=== PATIENT | male | born 1930 | race Caucasian/White ===

== ENCOUNTER 2017-07-21 21:46 | Emergency (ER) | payer OTHER, MEDICARE, BC ==
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
[2017-07-21] MEDS ORDERED: Iopamidol 612 MG/ML 75 ML Bottle IVPUSH ONE (22:07)
[2017-07-21] MEDS ORDERED: Iopamidol 612 MG/ML 100 ML Bottle IVPUSH ONE (22:20)
[2017-07-21 22:27] LABS: CHLORIDE,CL 102 mmol/L (101-111); SODIUM,NA 142 mmol/L (135-145)
[2017-07-21] MEDS ORDERED: Ketorolac 30 MG/ML SDV IVPUSH ONE (23:34)
--- NOTE | 2017-08-06 11:32 | EKG ---
07/21/2017- JD ROBERTO - This is a standard 12-lead EKG showing sinus rhythm with a ventricular rate of 73 beats per minute. There are premature ventricular complexes. No significant ST-T changes. Normal MT interval and QRS duration. [facility] /[id number]
== END 2017-07-21 23:56 | disposition home or self-care (01) ==
LOC: DL.ED 21:46
DX: S20.212A Contusion of left front wall of thorax, initial encounter (principal); Z79.82 Long term (current) use of aspirin; Z79.899 Other long term (current) drug therapy; V49.9XXA Car occupant (driver) (passenger) injured in unspecified traffic accident, initial encounter
CPT/HCPCS: 36415; 71260; 74177; 80053; 83880; 84484; 85025; 85610; 96374; 99285; J1885; Q9967

== ENCOUNTER 2018-04-17 10:30 | Inpatient (IN) | payer MEDICARE, BC ==
--- NOTE | 2018-04-17 10:31 | EDM.PDOC ---
ED HPI GENERAL MEDICAL PROBLEM - General Chief Complaint: Back Pain or Injury Stated Complaint: IN BY AMBULANCE Time Seen by Provider: 04/17/18 10:22 Source of Information: Reports: Patient, EMS History Limitations: Reports: No Limitations - History of Present Illness INITIAL COMMENTS - FREE TEXT/NARRATIVE: This 87 yo male patient was brought to the ED from [facility] due to lower back pain. The patient reports that he fell on Saturday (04/15/18) while at home. The patient reports he has noticed increased pain since the fall. The patient reports his pain got so bad today, that he was unable to ambulate. The patient denies any loss of consciousness before, during or after the fall. The patient reports that on Saturday, he fell in his bathroom and may have hit his back on the sink. The patient has not taken anything for temporary symptom relief and has not been seen by his primary care facility. Onset Date: 04/15/18 Duration: Constant, Getting Worse Location: Reports: Back (lower back ) Quality: Reports: Ache, Sharp, Stabbing Severity: Severe (rates his pain at a 8/10) Improves with: Reports: Rest Worsens with: Reports: Movement Context: Reports: Other (ground level fall 2 days ago) Associated Symptoms: Reports: Other (unable to ambulate due to pain) Middle Back Pain Score (Numeric/FACES): 8 - Related Data Allergies Allergy/AdvReac Type Severity Reaction Status Date / Time No Known Allergies Allergy Verified 04/17/18 10:40 Home Meds: Home Meds Antiox#10/Om3/DHA/EPA/Lut/Zeax [I-Caps with Lutein-[place] 3 SFG] 1 cap PO DAILY 05/19/14 [History] Doxazosin Mesylate 4 mg PO DAILY 05/19/14 [History] Magnesium 250 mg PO .3TIMES A WEEK 05/19/14 [History] Metoprolol Succinate [Toprol XL 50mg] 50 mg PO DAILY 05/19/14 [History] Potassium 250 mg PO BID 05/19/14 [History] Acetaminophen 650 mg PO Q6H PRN 10/11/14 [History] Finasteride [Proscar] 5 mg PO DAILY 10/11/14 [History] Acetaminophen [Tylenol Extra Strength] 500 mg PO Q8H PRN #30 tab 11/08/14 [Rx] Apixaban [Eliquis] 5 mg PO BID 04/17/18 [History] Gabapentin [Neurontin] 300 mg PO DAILY 04/17/18 [History] Ibuprofen [Motrin] 600 mg PO Q8H PRN 04/17/18 [History] atorvaSTATin [Lipitor] 10 mg PO BEDTIME 04/17/18 [History] ED ROS GENERAL - Review of Systems Review Of Systems: ROS reveals no pertinent complaints other than HPI. ED EXAM,LOWER BACK PAIN/INJURY - Physical Exam Exam: See Below Exam Limited By: No Limitations General Appearance: Alert, WD/WN, Moderate Distress Eye Exam: Bilateral Eye: EOMI, Normal Inspection, PERRL Ears: Normal External Exam, Normal Canal, Hearing Grossly Normal, Normal TMs Nose: Normal Inspection, Normal Mucosa, No Blood Throat/Mouth: Normal Inspection, Normal Lips, Normal Teeth, Normal Gums, Normal Oropharynx, Normal Voice, No Airway Compromise Head: Atraumatic, Normocephalic Neck: Normal Inspection, Supple, Non-Tender, Full Range of Motion Respiratory/Chest: No Respiratory Distress, Lungs Clear, Normal Breath Sounds, No Accessory Muscle Use, Chest Non-Tender Cardiovascular: Normal Peripheral Pulses, Regular Rate, Rhythm, No Edema, No Gallop, No JVD, No Murmur, No Rub GI/Abdominal: Normal Bowel Sounds, Soft, Non-Tender, No Organomegaly, No Distention, No Abnormal Bruit, No Mass (Male) Exam: Deferred Rectal (Males) Exam: Deferred Back Exam: Muscle Spasm, Paraspinal Tenderness, Vertebral Tenderness Extremities: Normal Inspection, Non-Tender, No Pedal Edema, Normal Capillary Refill Neurological: Alert, Normal Mood/Affect, CN II-XII Intact, Straight Leg Raise (L ), Straight Leg Raise (R), Difficulty Walking (due to pain). No: Saddle Anesthesia Psychiatric: Normal Affect, Normal Mood Skin Exam: Warm, Dry, Intact, Normal Color, No Rash Lymphatic: No Adenopathy Course - Vital Signs Last Recorded V/S: Last Vital Signs Temp 36.6 C 04/17/18 10:25 Pulse 64 04/17/18 10:25 Resp 16 04/17/18 10:25 BP 145/91 H 04/17/18 10:25 Pulse Ox 91 L 04/17/18 10:25 - Orders/Labs/Meds Orders: Active Orders 24 hr Category Date Time Status Lumbar Spine wo Cont [CT] Urgent Exams 04/17/18 10:25 Taken CULTURE URINE [RM] Stat Lab 04/17/18 11:17 Ordered UA W/MICROSCOPIC [URIN] Stat Lab 04/17/18 10:42 Ordered Labs: Laboratory Tests 04/17/18 04/17/18 04/17/18 Range/Units 10:32 10:32 10:42 WBC 11.6 H (5.0-10.0) 10^3/uL RBC 4.99 (4.6-6.2) 10^6/uL Hgb 15.2 (14.0-18.0) g/dL Hct 44.4 (40.0-54.0) % MCV 89.0 D (80-100) fL MCH 30.5 (27.0-34.0) pg MCHC 34.2 (33.0-35.0) g/dL Plt Count 149 L (150-450) 10^3/uL Neut % (Auto) 80.1 H (42.2-75.2) % Lymph % (Auto) 10.5 L (20.5-50.1) % [place] % (Auto) 8.4 H (2-8) % Eos % (Auto) 0.7 L (1.0-3.0) % Baso % (Auto) 0.3 (0.0-1.0) % Sodium 139 (135-145) mmol/L Potassium 4.2 (3.6-5.0) mmol/L Chloride 105 (101-111) mmol/L Carbon Dioxide 25.0 (21.0-31.0) mmol/L Anion Gap 13.2 BUN 18 (7-18) mg/dL Creatinine 0.9 (0.6-1.3) mg/dL Est Cr Clr Drug Dosing 54.60 mL/min Estimated GFR (MDRD) > 60 BUN/Creatinine Ratio 20.00 Glucose 121 H (74-105) mg/dL Calcium 8.9 (8.4-10.2) mg/dl Total Bilirubin 1.4 H (0.2-1.0) mg/dL AST 25 (10-42) IU/L ALT 21 (10-60) IU/L Alkaline Phosphatase 65 (42-121) IU/L Total Protein 7.0 (6.7-8.2) g/dl Albumin 3.9 (3.2-5.5) g/dl Globulin 3.1 Albumin/Globulin Ratio 1.26 Urine Color Yellow (YELLOW) Urine Appearance Slightly cloudy (CLEAR) Urine pH 6.0 (5.0-9.0) Ur Specific [place] 1.020 (1.005-1.030) Urine Protein Negative (NEGATIVE) Urine Glucose (UA) Negative (NEGATIVE) Urine Ketones 15 H (NEGATIVE) Urine Occult Blood Trace-intact H (NEGATIVE) Urine Nitrite Positive H (NEGATIVE) Urine Bilirubin Negative (NEGATIVE) Urine Urobilinogen 0.2 (0.2-1.0) mg/dL Ur Leukocyte Esterase Trace H (NEGATIVE) Urine RBC 5-10 H /HPF Urine WBC 5-10 H (0-5/HPF) /HPF Ur Epithelial Cells Few /HPF Urine Bacteria Many H (0-FEW/HPF) /HPF Meds: Medications Discontinued Medications Generic Name Dose Route Start Last Admin Trade Name Freq PRN Reason Stop Dose Admin Ceftriaxone Sodium 1 gm 04/17/18 12:22 Rocephin IVPUSH 04/17/18 12:23 ONETIME ONE Departure - Departure Time of Disposition: 12:24 Disposition: Admitted As Inpatient 65 Condition: Fair Clinical Impression: UTI (urinary tract infection) Qualifiers: Urinary tract infection type: site unspecified Hematuria presence: without hematuria Qualified Code(s): N39.0 - Urinary tract infection, site not specified Low back pain Qualifiers: Chronicity: acute Back pain laterality: bilateral Sciatica presence: without sciatica Qualified Code(s): M54.5 - Low back pain - Discharge Information Care Plan Goals: Discussed the patient's history, lab and CT results with Dr. Taylor. Dr. Taylor accepted the patient for continued evaluation and further treatment at [facility] in [place]. - My Orders Last 24 Hours: My Active Orders 04/17/18 10:25 Lumbar Spine wo Cont [CT] Urgent 04/17/18 10:42 UA W/MICROSCOPIC [URIN] Stat 04/17/18 11:17 CULTURE URINE [RM] Stat - Assessment/Plan Last 24 Hours: My Active Orders 04/17/18 10:25 Lumbar Spine wo Cont [CT] Urgent 04/17/18 10:42 UA W/MICROSCOPIC [URIN] Stat 04/17/18 11:17 CULTURE URINE [RM] Stat
[2018-04-17 11:11] LABS: CHLORIDE,CL 105 mmol/L (101-111); SODIUM,NA 139 mmol/L (135-145)
[2018-04-17] MEDS ORDERED: cefTRIAXone 1 GM Vial IVPUSH ONE (12:22)
[2018-04-17] MEDS ORDERED: Ibuprofen 600 MG Tab PO PRN (14:17)
[2018-04-17] MEDS ORDERED: Ibuprofen 400 MG Tab PO PRN (14:19)
[2018-04-17] MEDS ORDERED: Ondansetron 4 MG Tab.DIS PO PRN (14:32)
[2018-04-17] MEDS ORDERED: Zolpidem 5 MG Tab PO PRN (14:32)
--- NOTE | 2018-04-17 14:40 | PCM.HP ---
H&P History of Present Illness - General Date of Service: 04/17/18 Admit Problem/Dx: Admission Diagnosis/Problem Admission Diagnosis/Problem Back pain Source of Information: Patient - History of Present Illness Initial Comments - Free Text/Narative: The patient is an 87-year-old gentleman who lives in an assisted living facility. The patient fell and hit his back about to 3 days prior to this admission. He has been experiencing moderate to severe pain since. This is preventing him from being able to get up and ambulate. In his low back, nonradiating, sharp, severe pain. He practically has no pain when resting but severe when he is moving his lower extremities and trying to get up from bed or chair. No associated lower extremity sensory or motor changes. Can move both legs well but the very painful in the low back. The pain is nonradiating. Middle Back Pain Score (Numeric/FACES): 8 - Related Data Allergies/Adverse Reactions: Allergies Allergy/AdvReac Type Severity Reaction Status Date / Time No Known Allergies Allergy Verified 04/17/18 14:12 Home Medications: Home Meds Antiox#10/Om3/DHA/EPA/Lut/Zeax [I-Caps with Lutein-[place] 3 SFG] 1 cap PO DAILY 05/19/14 [History] Doxazosin Mesylate 4 mg PO DAILY 05/19/14 [History] Magnesium 250 mg PO DAILY 05/19/14 [History] Metoprolol Succinate [Toprol XL 50mg] 100 mg PO DAILY 05/19/14 [History] Potassium 250 mg PO BID 05/19/14 [History] Acetaminophen 650 mg PO Q6H PRN 10/11/14 [History] Finasteride [Proscar] 5 mg PO DAILY 10/11/14 [History] Apixaban [Eliquis] 5 mg PO BID 04/17/18 [History] Gabapentin [Neurontin] 300 mg PO DAILY 04/17/18 [History] Ibuprofen [Motrin] 600 mg PO Q8H PRN 04/17/18 [History] atorvaSTATin [Lipitor] 10 mg PO BEDTIME 04/17/18 [History] Past Medical History HEENT History: Reports: Hard of Hearing Cardiovascular History: Reports: Afib, High Cholesterol, Pacemaker Respiratory History: Reports: None Gastrointestinal History: Reports: Other (See Below) Other Gastrointestinal History: inguinal hernia Genitourinary History: Reports: BPH Musculoskeletal History: Reports: None 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, Peripheral Psychiatric History: Reports: None Endocrine/Metabolic History: Reports: None Hematologic History: Reports: None Immunologic History: Reports: None Oncologic (Cancer) History: Reports: None Dermatologic History: Reports: None - Infectious Disease History Infectious Disease History: Reports: None - Past Surgical History HEENT Surgical History: Reports: Cataract Surgery Cardiovascular Surgical History: Reports: Other (See Below) Other Cardiovascular Surgeries/Procedures: pacemaker Respiratory Surgical History: Reports: None GI Surgical History: Reports: None Male Surgical History: Reports: None Neurological Surgical History: Reports: None Musculoskeletal Surgical History: Reports: Hip Replacement Other Musculoskeletal Surgeries/Procedures:: right hip partial, 1989 Social & Family History - Family History Family Medical History: Noncontributory - Tobacco Use Smoking Status *Q: Never Smoker Second Hand Smoke Exposure: No - Caffeine Use Caffeine Use: Reports: Soda - Recreational Drug Use Recreational Drug Use: No H&P Review of Systems - Review of Systems: Review Of Systems: See Below General: Denies: Fever Pulmonary: Denies: Shortness of Breath Cardiovascular: Denies: Chest Pain Gastrointestinal: Denies: Abdominal Pain Genitourinary: Denies: Dysuria Musculoskeletal: Reports: Back Pain Skin: Denies: Rash Psychiatric: Reports: Confusion Exam - Exam Exam: See Below - Vital Signs Vital Signs: Last Vital Signs Temp 36.6 C 04/17/18 13:19 Pulse 67 04/17/18 13:19 Resp 20 04/17/18 13:19 BP 154/73 H 04/17/18 13:19 Pulse Ox 92 L 04/17/18 13:19 Weight: 74.888 kg - Exam Quality Assessment: Supplemental Oxygen General: Alert, Oriented Neck: Supple Lungs: Clear to Auscultation, Normal Respiratory Effort Cardiovascular: Regular Rate, Regular Rhythm GI/Abdominal Exam: Normal Bowel Sounds, Soft, Non-Tender Back Exam: Normal Inspection, Paraspinal Tenderness (Lumbar lower spine) Extremities: No Pedal Edema Neurological: Sensation Intact. No: Focal Deficit Neuro Extensive - Mental Status: Alert. 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), Memory Intact - Patient Data Lab Results Last 24 hrs: Laboratory Results - last 24 hr 04/17/18 04/17/18 04/17/18 Range/Units 10:32 10:32 10:42 WBC 11.6 H (5.0-10.0) 10^3/uL RBC 4.99 (4.6-6.2) 10^6/uL Hgb 15.2 (14.0-18.0) g/dL Hct 44.4 (40.0-54.0) % MCV 89.0 D (80-100) fL MCH 30.5 (27.0-34.0) pg MCHC 34.2 (33.0-35.0) g/dL Plt Count 149 L (150-450) 10^3/uL Neut % (Auto) 80.1 H (42.2-75.2) % Lymph % (Auto) 10.5 L (20.5-50.1) % [place] % (Auto) 8.4 H (2-8) % Eos % (Auto) 0.7 L (1.0-3.0) % Baso % (Auto) 0.3 (0.0-1.0) % Sodium 139 (135-145) mmol/L Potassium 4.2 (3.6-5.0) mmol/L Chloride 105 (101-111) mmol/L Carbon Dioxide 25.0 (21.0-31.0) mmol/L Anion Gap 13.2 BUN 18 (7-18) mg/dL Creatinine 0.9 (0.6-1.3) mg/dL Est Cr Clr Drug Dosing 54.60 mL/min Estimated GFR (MDRD) > 60 BUN/Creatinine Ratio 20.00 Glucose 121 H (74-105) mg/dL Calcium 8.9 (8.4-10.2) mg/dl Total Bilirubin 1.4 H (0.2-1.0) mg/dL AST 25 (10-42) IU/L ALT 21 (10-60) IU/L Alkaline Phosphatase 65 (42-121) IU/L Total Protein 7.0 (6.7-8.2) g/dl Albumin 3.9 (3.2-5.5) g/dl Globulin 3.1 Albumin/Globulin Ratio 1.26 Urine Color Yellow (YELLOW) Urine Appearance Slightly cloudy (CLEAR) Urine pH 6.0 (5.0-9.0) Ur Specific [place] 1.020 (1.005-1.030) Urine Protein Negative (NEGATIVE) Urine Glucose (UA) Negative (NEGATIVE) Urine Ketones 15 H (NEGATIVE) Urine Occult Blood Trace-intact H (NEGATIVE) Urine Nitrite Positive H (NEGATIVE) Urine Bilirubin Negative (NEGATIVE) Urine Urobilinogen 0.2 (0.2-1.0) mg/dL Ur Leukocyte Esterase Trace H (NEGATIVE) Urine RBC 5-10 H /HPF Urine WBC 5-10 H (0-5/HPF) /HPF Ur Epithelial Cells Few /HPF Urine Bacteria Many H (0-FEW/HPF) /HPF Result Diagrams: 04/17/18 10:32 04/17/18 10:32 Problem List Initiated/Reviewed/Updated: Yes Orders Last 24hrs: Active Orders 24 hr Category Date Time Status Patient Status [ADT] Routine ADT 04/17/18 14:32 Ordered Oxygen Therapy [RC] PRN Care 04/17/18 14:32 Ordered Peripheral IV Care [RC] . DIRECTED Care 04/17/18 14:33 Ordered Up With Assistance [RC] ASDIRECTED Care 04/17/18 14:32 Ordered VTE/DVT Education [RC] PER UNIT ROUTINE Care 04/17/18 14:32 Ordered Vital Signs [RC] Q4H Care 04/17/18 14:32 Ordered OT Evaluation and Treatment [CONS] Routine Cons 04/17/18 14:28 Active PT Evaluation and Treatment [CONS] Routine Cons 04/17/18 14:28 Active Regular Diet [DIET] Diet 04/17/18 Dinner Ordered Lumbar Spine wo Cont [CT] Urgent Exams 04/17/18 10:25 Taken BASIC METABOLIC PANEL,BMP [CHEM] AM Lab 04/18/18 05:15 Ordered CBC WITH AUTO DIFF [HEME] AM Lab 04/18/18 05:15 Ordered CULTURE URINE [RM] Stat Lab 04/17/18 10:25 Received UA W/MICROSCOPIC [URIN] Stat Lab 04/17/18 10:42 Ordered Acetaminophen [Tylenol] Med 04/17/18 21:00 Ordered 650 mg PO BID Acetaminophen [Tylenol] Med 04/17/18 14:17 Active 650 mg PO Q6H PRN Apixaban [Eliquis] Med 04/17/18 21:00 Ordered 5 mg PO BID Docusate Sodium [Colace] Med 04/17/18 14:32 Ordered 100 mg PO BID PRN Doxazosin [Cardura] Med 04/18/18 09:00 Active 4 mg PO DAILY Finasteride [Proscar] Med 04/18/18 09:00 Active 5 mg PO DAILY Gabapentin [Neurontin] Med 04/17/18 21:00 Active 200 mg PO BID Ibuprofen [Motrin] Med 04/17/18 21:00 Active 400 mg PO BID Ibuprofen [Motrin] Med 04/17/18 14:19 Active 400 mg PO Q8H PRN Lidocaine 5% [Lidoderm 5%] Med 04/17/18 14:30 Ordered 700 mg TOP DAILY Magnesium Oxide Med 04/18/18 09:00 Active 250 mg PO DAILY Metoprolol Succinate [Toprol XL] Med 04/18/18 09:00 Active 100 mg PO DAILY Morphine Med 04/17/18 14:32 Ordered 1 mg IVPUSH Q2H PRN Ondansetron [Zofran ODT] Med 04/17/18 14:32 Ordered 4 mg PO Q6H PRN Potassium [Potassium] Med 04/17/18 21:00 Ordered 250 mg PO BID Sodium Chloride 0.9% [Saline Flush] Med 04/17/18 14:32 Ordered 10 ml FLUSH ASDIRECTED PRN Zolpidem [Ambien] Med 04/17/18 14:32 Ordered 5 mg PO BEDTIME PRN atorvaSTATin [Lipitor] Med 04/17/18 21:00 Active 10 mg PO BEDTIME cefTRIAXone [Rocephin] Med 04/18/18 13:00 Ordered 1 gm IVPUSH Q24H oxyCODONE Med 04/17/18 14:32 Ordered 5 mg PO Q4H PRN Antiembolic Hose [OM.PC] Per Unit Routine Oth 04/17/18 14:33 Ordered Peripheral IV Insertion Adult [OM.PC] Routine Oth 04/17/18 14:32 Ordered Saline Lock Insert [OM.PC] Routine Oth 04/17/18 14:32 Ordered Resuscitation Status Routine Resus Stat 04/17/18 14:32 Ordered Medication Orders Acetaminophen (Tylenol) 650 mg PO Q6H PRN PRN Reason: Pain/Fever Acetaminophen (Tylenol) 650 mg PO BID [facility] Atorvastatin Calcium (Lipitor) 10 mg PO BEDTIME [facility] Ceftriaxone Sodium (Rocephin) 1 gm IVPUSH Q24H [facility] Doxazosin Mesylate (Cardura) 4 mg PO DAILY [facility] Finasteride (Proscar) 5 mg PO DAILY [facility] Gabapentin (Neurontin) 200 mg PO BID [facility] Ibuprofen (Motrin) 400 mg PO Q8H PRN PRN Reason: pain moderate Ibuprofen (Motrin) 400 mg PO BID [facility] Lidocaine (Lidoderm 5%) 700 mg TOP DAILY [facility] Magnesium Oxide (Magnesium Oxide) 250 mg PO DAILY [facility] Metoprolol Succinate (Toprol Xl) 100 mg PO DAILY [facility] Non-Formulary Medication (Apixaban [Eliquis]) 5 mg PO BID [facility] Non-Formulary Medication (Potassium [Potassium]) 250 mg PO BID [facility] Assessment/Plan Comment:: acute on chronic back pain Has a history of chronic T12 compression fracture, spinal stenosis Has been on Neurontin in the past CT of the lumbar spine showed chronic and degenerative changes For pain control I will increase the Neurontin, add Lidoderm patch, will use scheduled ibuprofen and Tylenol along with as needed Tylenol, ibuprofen, oxycodone We will consult physical and occupational therapy Urinary tract infection Obtain urine culture Treat with ceftriaxone Atrial fibrillation Continue metoprolol for rate control Continue apixaban for anticoagulation Hypertension Will treat with lisinopril History of atrial fibrillation Rate control with metoprolol Anticoagulation with apixaban DVT prophylaxis with full dose anticoagulation with apixaban
[2018-04-17] MEDS: Lidocaine 5% 700 MG Patch TOP SCH (15:51)
[2018-04-17] MEDS ORDERED: Non-Formulary Medication 1 Each (Apixaban [Eliquis] 5 MG) PO SCH (21:00)
[2018-04-17] MEDS ORDERED: POTASSIUM PO SCH (21:00)
[2018-04-17] MEDS: Gabapentin 100 MG Cap PO SCH (22:33)
[2018-04-17] MEDS: Ibuprofen 400 MG Tab PO SCH (22:33)
[2018-04-17] MEDS: atorvaSTATin 10 MG Tab PO SCH (22:33)
[2018-04-17] MEDS: Acetaminophen 325 MG Tab PO SCH (22:35)
[2018-04-17] MEDS: ELIQUIS 5 MG PO SCH (22:36)
[2018-04-17] MEDS: K PHOS 500 MG PO SCH (22:37)
[2018-04-17] MEDS: Sodium Chloride 0.9% 10 ML Syringe FLUSH PRN (22:42)
[2018-04-18 06:57] LABS: CHLORIDE,CL 106 mmol/L (101-111); SODIUM,NA 139 mmol/L (135-145)
[2018-04-18] MEDS: Doxazosin 2 MG Tab PO SCH (08:35)
[2018-04-18] MEDS: Gabapentin 100 MG Cap PO SCH ×2 (08:36→20:55)
[2018-04-18] MEDS: Ibuprofen 400 MG Tab PO SCH ×2 (08:37→18:20)
[2018-04-18] MEDS: Metoprolol Succinate 50 MG Tab.ER PO SCH (08:38)
[2018-04-18] MEDS: Finasteride 5 MG Tab PO SCH (08:39)
[2018-04-18] MEDS: Acetaminophen 325 MG Tab PO SCH ×2 (08:40→20:59)
[2018-04-18] MEDS: Lidocaine 5% 700 MG Patch TOP SCH (08:42)
[2018-04-18] MEDS: ELIQUIS 5 MG PO SCH ×2 (09:30→20:52)
[2018-04-18] MEDS: K PHOS 500 MG PO SCH ×2 (09:30→20:53)
--- NOTE | 2018-04-18 10:43 | PCM.PN ---
- General Info Date of Service: 04/18/18 Subjective Update: The patient is an 87-year-old gentleman who has been living in an assisted living facility. The patient fell and hit the lower back. He has not been able to ambulate well since. Since admission the lower back pain continues. It is episodically moderate to severe. Worse with moving, better with rest. Started 2 days prior to admission after a fall. No associated syncopal. No urinary burning. he had Low-grade temperature overnight. - Review of Systems General: Reports: Fever, Weakness Pulmonary: Denies: Shortness of Breath Cardiovascular: Denies: Chest Pain Gastrointestinal: Denies: Abdominal Pain Genitourinary: Denies: Dysuria Neurological: Reports: Confusion - Patient Data Vitals - Most Recent: Last Vital Signs Temp 37.2 C 04/18/18 07:00 Pulse 74 04/18/18 08:38 Resp 20 04/18/18 07:00 BP 146/84 H 04/18/18 08:38 Pulse Ox 95 04/18/18 07:00 Weight - Most Recent: 74.888 kg I&O - Last 24 Hours: Intake & Output 04/17/18 04/18/18 04/18/18 22:59 06:59 14:59 Intake Total 500 Output Total 375 200 Balance 125 -200 Lab Results Last 24 Hours: Laboratory Results - last 24 hr 04/17/18 04/17/18 04/17/18 Range/Units 10:32 10:32 10:42 WBC 11.6 H (5.0-10.0) 10^3/uL RBC 4.99 (4.6-6.2) 10^6/uL Hgb 15.2 (14.0-18.0) g/dL Hct 44.4 (40.0-54.0) % MCV 89.0 D (80-100) fL MCH 30.5 (27.0-34.0) pg MCHC 34.2 (33.0-35.0) g/dL Plt Count 149 L (150-450) 10^3/uL Neut % (Auto) 80.1 H (42.2-75.2) % Lymph % (Auto) 10.5 L (20.5-50.1) % [place] % (Auto) 8.4 H (2-8) % Eos % (Auto) 0.7 L (1.0-3.0) % Baso % (Auto) 0.3 (0.0-1.0) % Sodium 139 (135-145) mmol/L Potassium 4.2 (3.6-5.0) mmol/L Chloride 105 (101-111) mmol/L Carbon Dioxide 25.0 (21.0-31.0) mmol/L Anion Gap 13.2 BUN 18 (7-18) mg/dL Creatinine 0.9 (0.6-1.3) mg/dL Est Cr Clr Drug Dosing 54.60 mL/min Estimated GFR (MDRD) > 60 BUN/Creatinine Ratio 20.00 Glucose 121 H (74-105) mg/dL Calcium 8.9 (8.4-10.2) mg/dl Total Bilirubin 1.4 H (0.2-1.0) mg/dL AST 25 (10-42) IU/L ALT 21 (10-60) IU/L Alkaline Phosphatase 65 (42-121) IU/L Total Protein 7.0 (6.7-8.2) g/dl Albumin 3.9 (3.2-5.5) g/dl Globulin 3.1 Albumin/Globulin Ratio 1.26 Urine Color Yellow (YELLOW) Urine Appearance Slightly cloudy (CLEAR) Urine pH 6.0 (5.0-9.0) Ur Specific [place] 1.020 (1.005-1.030) Urine Protein Negative (NEGATIVE) Urine Glucose (UA) Negative (NEGATIVE) Urine Ketones 15 H (NEGATIVE) Urine Occult Blood Trace-intact H (NEGATIVE) Urine Nitrite Positive H (NEGATIVE) Urine Bilirubin Negative (NEGATIVE) Urine Urobilinogen 0.2 (0.2-1.0) mg/dL Ur Leukocyte Esterase Trace H (NEGATIVE) Urine RBC 5-10 H /HPF Urine WBC 5-10 H (0-5/HPF) /HPF Ur Epithelial Cells Few /HPF Urine Bacteria Many H (0-FEW/HPF) /HPF 04/18/18 04/18/18 Range/Units 06:00 06:00 WBC 9.7 (5.0-10.0) 10^3/uL RBC 4.50 L (4.6-6.2) 10^6/uL Hgb 13.6 L D (14.0-18.0) g/dL Hct 40.5 (40.0-54.0) % MCV 90.0 (80-100) fL MCH 30.2 (27.0-34.0) pg MCHC 33.6 (33.0-35.0) g/dL Plt Count 131 L (150-450) 10^3/uL Neut % (Auto) 72.3 (42.2-75.2) % Lymph % (Auto) 14.8 L (20.5-50.1) % [place] % (Auto) 9.1 H (2-8) % Eos % (Auto) 3.4 H (1.0-3.0) % Baso % (Auto) 0.4 (0.0-1.0) % Sodium 139 (135-145) mmol/L Potassium 3.8 (3.6-5.0) mmol/L Chloride 106 (101-111) mmol/L Carbon Dioxide 25.0 (21.0-31.0) mmol/L Anion Gap 11.8 BUN 23 H (7-18) mg/dL Creatinine 1.0 (0.6-1.3) mg/dL Est Cr Clr Drug Dosing 54.09 mL/min Estimated GFR (MDRD) > 60 BUN/Creatinine Ratio Glucose 110 H (74-105) mg/dL Calcium 8.4 (8.4-10.2) mg/dl Total Bilirubin (0.2-1.0) mg/dL AST (10-42) IU/L ALT (10-60) IU/L Alkaline Phosphatase (42-121) IU/L Total Protein (6.7-8.2) g/dl Albumin (3.2-5.5) g/dl Globulin Albumin/Globulin Ratio Urine Color (YELLOW) Urine Appearance (CLEAR) Urine pH (5.0-9.0) Ur Specific [place] (1.005-1.030) Urine Protein (NEGATIVE) Urine Glucose (UA) (NEGATIVE) Urine Ketones (NEGATIVE) Urine Occult Blood (NEGATIVE) Urine Nitrite (NEGATIVE) Urine Bilirubin (NEGATIVE) Urine Urobilinogen (0.2-1.0) mg/dL Ur Leukocyte Esterase (NEGATIVE) Urine RBC /HPF Urine WBC (0-5/HPF) /HPF Ur Epithelial Cells /HPF Urine Bacteria (0-FEW/HPF) /HPF Mart Results Last 24 Hours: Microbiology 04/17/18 10:25 Urine Culture - Preliminary Urine, Voided Med Orders - Current: Current Medications Acetaminophen (Tylenol) 650 mg PO Q6H PRN PRN Reason: Pain/Fever Acetaminophen (Tylenol) 650 mg PO BID [facility] Last Admin: 04/18/18 08:40 Dose: 650 mg Atorvastatin Calcium (Lipitor) 10 mg PO BEDTIME [facility] Last Admin: 04/17/18 22:33 Dose: 10 mg Ceftriaxone Sodium (Rocephin) 1 gm IVPUSH Q24H [facility] Docusate Sodium (Colace) 100 mg PO BID PRN PRN Reason: Constipation Doxazosin Mesylate (Cardura) 4 mg PO DAILY [facility] Last Admin: 04/18/18 08:35 Dose: 4 mg Finasteride (Proscar) 5 mg PO DAILY [facility] Last Admin: 04/18/18 08:39 Dose: 5 mg Gabapentin (Neurontin) 200 mg PO BID [facility] Last Admin: 04/18/18 08:36 Dose: 200 mg Ibuprofen (Motrin) 400 mg PO Q8H PRN PRN Reason: pain moderate Ibuprofen (Motrin) 400 mg PO BID [facility] Last Admin: 04/18/18 08:37 Dose: 400 mg Lidocaine (Lidoderm 5%) 700 mg TOP DAILY [facility] Last Admin: 04/18/18 08:42 Dose: 700 mg Magnesium Oxide (Magnesium Oxide) 250 mg PO DAILY [facility] Last Admin: 04/18/18 08:36 Dose: 250 mg Metoprolol Succinate (Toprol Xl) 100 mg PO DAILY [facility] Last Admin: 04/18/18 08:38 Dose: 100 mg Miscellaneous Information (Remove Patch) 1 ea TRDERM BEDTIME [facility] Morphine Sulfate (Morphine) 1 mg IVPUSH Q2H PRN PRN Reason: Pain (severe 7-10) Ondansetron HCl (Zofran Odt) 4 mg PO Q6H PRN PRN Reason: nausea, able to take PO Oxycodone HCl (Oxycodone) 5 mg PO Q4H PRN PRN Reason: Pain (moderate 4-6) PtomEliquis 5 Mg (Tab) 0 each PO BID [facility] Last Admin: 04/17/18 22:36 Dose: 1 each PtomK-Phos 500 (Mg Tablet) 0 each PO BID [facility] Last Admin: 04/17/18 22:37 Dose: 1 each Sodium Chloride (Saline Flush) 10 ml FLUSH ASDIRECTED PRN PRN Reason: Keep Vein Open Last Admin: 04/17/18 22:42 Dose: 10 ml Zolpidem Tartrate (Ambien) 5 mg PO BEDTIME PRN PRN Reason: Sleep Discontinued Medications Ceftriaxone Sodium (Rocephin) 1 gm IVPUSH ONETIME ONE Stop: 04/17/18 12:23 Last Admin: 04/17/18 13:19 Dose: 1 gm Ibuprofen (Motrin) 600 mg PO Q8H PRN PRN Reason: Pain Non-Formulary Medication (Apixaban [Eliquis]) 5 mg PO BID [facility] Non-Formulary Medication (Potassium [Potassium]) 250 mg PO BID [facility] - Exam General: Alert, Oriented Neck: Supple Lungs: Clear to Auscultation, Normal Respiratory Effort Cardiovascular: Regular Rate, Regular Rhythm GI/Abdominal Exam: Normal Bowel Sounds, Soft, Non-Tender Back Exam: Vertebral Tenderness (Lower lumbar) Extremities: No Pedal Edema Skin: Warm, Dry Neurological: No New Focal Deficit, Strength Equal Bilateral (In the lower extremities), Sensation Intact (In lower extremities) Psy/Mental Status: Alert, Normal Affect, Normal Mood - Problem List Review Problem List Initiated/Reviewed/Updated: Yes - My Orders Last 24 Hours: My Active Orders 04/17/18 14:17 Acetaminophen [Tylenol] 650 mg PO Q6H PRN 04/17/18 14:19 Ibuprofen [Motrin] 400 mg PO Q8H PRN 04/17/18 14:28 OT Evaluation and Treatment [CONS] Routine PT Evaluation and Treatment [CONS] Routine 04/17/18 14:30 Lidocaine 5% [Lidoderm 5%] 700 mg TOP DAILY 04/17/18 14:32 Patient Status [ADT] Routine Oxygen Therapy [RC] PRN Up With Assistance [RC] ASDIRECTED VTE/DVT Education [RC] PER UNIT ROUTINE Vital Signs [RC] 07,11,15,19,23,03 Docusate Sodium [Colace] 100 mg PO BID PRN Morphine 1 mg IVPUSH Q2H PRN Ondansetron [Zofran ODT] 4 mg PO Q6H PRN Sodium Chloride 0.9% [Saline Flush] 10 ml FLUSH ASDIRECTED PRN Zolpidem [Ambien] 5 mg PO BEDTIME PRN oxyCODONE 5 mg PO Q4H PRN Peripheral IV Insertion Adult [OM.PC] Routine Saline Lock Insert [OM.PC] Routine Resuscitation Status Routine 04/17/18 14:33 Peripheral IV Care [RC] Antiembolic Hose [OM.PC] Per Unit Routine 04/17/18 21:00 Acetaminophen [Tylenol] 650 mg PO BID Gabapentin [Neurontin] 200 mg PO BID Ibuprofen [Motrin] 400 mg PO BID Patient's Own Medication [Ptom] See Dose Instructions PO BID Patient's Own Medication [Ptom] See Dose Instructions PO BID atorvaSTATin [Lipitor] 10 mg PO BEDTIME 04/17/18 Dinner Regular Diet [DIET] 04/18/18 09:00 Doxazosin [Cardura] 4 mg PO DAILY Finasteride [Proscar] 5 mg PO DAILY Magnesium Oxide 250 mg PO DAILY Metoprolol Succinate [Toprol XL] 100 mg PO DAILY 04/18/18 13:00 cefTRIAXone [Rocephin] 1 gm IVPUSH Q24H 04/18/18 21:00 Remove Patch 1 ea TRDERM BEDTIME - Plan Plan:: acute on chronic back pain Has a history of chronic T12 compression fracture, spinal stenosis Has been on Neurontin in the past CT of the lumbar spine showed chronic and degenerative changes For pain control I will increase the Neurontin, add Lidoderm patch, will use scheduled ibuprofen and Tylenol along with as needed Tylenol, ibuprofen, oxycodone discussed with physical and occupational therapy - it appears that the patient will need further therapy for safe discharge. Urinary tract infection urine culture: Pending Treat with ceftriaxone Atrial fibrillation Continue metoprolol for rate control Continue apixaban for anticoagulation Hypertension Will treat with lisinopril History of atrial fibrillation Rate control with metoprolol Anticoagulation with apixaban DVT prophylaxis with full dose anticoagulation with apixaban
[2018-04-18] MEDS: cefTRIAXone 1 GM Vial IVPUSH SCH (15:52)
[2018-04-18] MEDS: atorvaSTATin 10 MG Tab PO SCH (20:56)
[2018-04-18] MEDS: OLANZapine 5 MG Tab PO PRN (20:56)
[2018-04-18] MEDS: Sodium Chloride 0.9% 10 ML Syringe FLUSH PRN (22:53)
[2018-04-19] MEDS: OLANZapine 10 MG Vial IM PRN (01:46)
[2018-04-19] MEDS ORDERED: LORazepam 2 MG/ML Syringe IVPUSH ONE (03:03)
[2018-04-19] MEDS: Sodium Chloride 0.9% 10 ML Syringe FLUSH PRN ×7 (03:13→21:01)
[2018-04-19] MEDS: Ibuprofen 400 MG Tab PO SCH ×2 (09:41→18:59)
[2018-04-19] MEDS: Lidocaine 5% 700 MG Patch TOP SCH (13:00)
--- NOTE | 2018-04-19 13:13 | PCM.PN ---
- General Info Date of Service: 04/19/18 Admission Dx/Problem (Free Text): Admission Diagnosis/Problem Admission Diagnosis/Problem Back pain Subjective Update: The patient is an 87-year-old gentleman who has been living in an assisted living facility. The patient fell and hit the lower back. He has not been able to ambulate well since. Since admission the lower back pain continues. It is episodically moderate to severe. Worse with moving, better with rest. Started 2 days prior to admission after a fall. No associated syncopal episode. Overnight had significant confusion, agitation. Agitation did not improve with olanzaprine, follow sleep after receiving Ativan. - Review of Systems Pulmonary: Denies: Shortness of Breath Cardiovascular: Denies: Chest Pain Gastrointestinal: Denies: Abdominal Pain Neurological: Reports: Confusion Psychiatric: Reports: Agitation - Patient Data Vitals - Most Recent: Last Vital Signs Temp 36.9 C 04/18/18 23:20 Pulse 72 04/18/18 23:20 Resp 18 04/18/18 23:20 BP 153/68 H 04/18/18 23:20 Pulse Ox 90 L 04/18/18 23:20 Weight - Most Recent: 74.888 kg I&O - Last 24 Hours: Intake & Output 04/18/18 04/19/18 04/19/18 22:59 06:59 14:59 Intake Total 500 350 Output Total 450 80 Balance 50 270 Mart Results Last 24 Hours: Microbiology 04/17/18 10:25 Urine Culture - Final Urine, Voided Staphylococcus Epidermidis Med Orders - Current: Current Medications Acetaminophen (Tylenol) 650 mg PO Q6H PRN PRN Reason: Pain/Fever Acetaminophen (Tylenol) 650 mg PO 1300,2100 [facility] Last Admin: 04/18/18 20:59 Dose: 650 mg Atorvastatin Calcium (Lipitor) 10 mg PO BEDTIME [facility] Last Admin: 04/18/18 20:56 Dose: 10 mg Ceftriaxone Sodium (Rocephin) 1 gm IVPUSH Q24H [facility] Last Admin: 04/18/18 15:52 Dose: 1 gm Docusate Sodium (Colace) 100 mg PO BID PRN PRN Reason: Constipation Doxazosin Mesylate (Cardura) 4 mg PO DAILY [facility] Last Admin: 04/18/18 08:35 Dose: 4 mg Finasteride (Proscar) 5 mg PO DAILY [facility] Last Admin: 04/18/18 08:39 Dose: 5 mg Gabapentin (Neurontin) 200 mg PO BID [facility] Last Admin: 04/18/18 20:55 Dose: 200 mg Ibuprofen (Motrin) 400 mg PO Q8H PRN PRN Reason: pain moderate Ibuprofen (Motrin) 400 mg PO BIDMEALS [facility] Last Admin: 04/19/18 09:41 Dose: Not Given Lidocaine (Lidoderm 5%) 700 mg TOP DAILY [facility] Last Admin: 04/18/18 08:42 Dose: 700 mg Magnesium Oxide (Magnesium Oxide) 250 mg PO DAILY [facility] Last Admin: 04/18/18 08:36 Dose: 250 mg Metoprolol Succinate (Toprol Xl) 100 mg PO DAILY [facility] Last Admin: 04/18/18 08:38 Dose: 100 mg Miscellaneous Information (Remove Patch) 1 ea TRDERM BEDTIME [facility] Last Admin: 04/18/18 21:05 Dose: Not Given Morphine Sulfate (Morphine) 1 mg IVPUSH Q2H PRN PRN Reason: Pain (severe 7-10) Olanzapine (Zyprexa) 5 mg PO Q6H PRN PRN Reason: agitation, restlessness Last Admin: 04/18/18 20:56 Dose: 5 mg Olanzapine (Zyprexa) 5 mg IM Q6H PRN PRN Reason: agitation, reslessness Last Admin: 04/19/18 01:46 Dose: 5 mg Ondansetron HCl (Zofran Odt) 4 mg PO Q6H PRN PRN Reason: nausea, able to take PO Oxycodone HCl (Oxycodone) 5 mg PO Q4H PRN PRN Reason: Pain (moderate 4-6) PtomEliquis 5 Mg (Tab) 0 each PO BID [facility] Last Admin: 04/18/18 20:52 Dose: 1 each PtomK-Phos 500 (Mg Tablet) 0 each PO BID [facility] Last Admin: 04/18/18 20:53 Dose: 1 each Sodium Chloride (Saline Flush) 10 ml FLUSH ASDIRECTED PRN PRN Reason: Keep Vein Open Last Admin: 04/19/18 03:19 Dose: 10 ml Zolpidem Tartrate (Ambien) 5 mg PO BEDTIME PRN PRN Reason: Sleep Discontinued Medications Acetaminophen (Tylenol) 650 mg PO BID [facility] Last Admin: 04/18/18 08:40 Dose: 650 mg Ceftriaxone Sodium (Rocephin) 1 gm IVPUSH ONETIME ONE Stop: 04/17/18 12:23 Last Admin: 04/17/18 13:19 Dose: 1 gm Ibuprofen (Motrin) 600 mg PO Q8H PRN PRN Reason: Pain Ibuprofen (Motrin) 400 mg PO BID [facility] Last Admin: 04/18/18 08:37 Dose: 400 mg Lorazepam (Ativan) 1 mg IVPUSH ONETIME ONE Stop: 04/19/18 03:04 Last Admin: 04/19/18 03:13 Dose: 1 mg Non-Formulary Medication (Apixaban [Eliquis]) 5 mg PO BID [facility] Non-Formulary Medication (Potassium [Potassium]) 250 mg PO BID [facility] - Exam General: Sedated, Other (Arousable) Neck: Supple Lungs: Clear to Auscultation, Normal Respiratory Effort Cardiovascular: Regular Rate, Regular Rhythm GI/Abdominal Exam: Normal Bowel Sounds, Soft, Non-Tender Extremities: No Pedal Edema Skin: Warm, Dry Psy/Mental Status: Agitated (overnight) - Problem List & Annotations (1) Acute encephalopathy SNOMED Code(s): 51863924, 111445601 Code(s): G93.40 - ENCEPHALOPATHY, UNSPECIFIED Status: Acute Current Visit : Yes (2) Low back pain SNOMED Code(s): 794415762 Code(s): M54.5 - LOW BACK PAIN Status: Acute Current Visit: Yes Qualifiers: Chronicity: acute Back pain laterality: bilateral Sciatica presence: without sciatica Qualified Code(s): M54.5 - Low back pain (3) UTI (urinary tract infection) SNOMED Code(s): 62345263 Code(s): N39.0 - URINARY TRACT INFECTION, SITE NOT SPECIFIED Status: Acute Current Visit: Yes Qualifiers: Urinary tract infection type: site unspecified Hematuria presence: without hematuria Qualified Code(s): N39.0 - Urinary tract infection, site not specified - Problem List Review Problem List Initiated/Reviewed/Updated: Yes - My Orders Last 24 Hours: My Active Orders 04/18/18 13:00 cefTRIAXone [Rocephin] 1 gm IVPUSH Q24H 04/18/18 18:00 Ibuprofen [Motrin] 400 mg PO BIDMEALS 04/18/18 19:30 OLANZapine [ZyPREXA] 5 mg PO Q6H PRN 04/18/18 19:31 OLANZapine [ZyPREXA] 5 mg IM Q6H PRN 04/18/18 21:00 Acetaminophen [Tylenol] 650 mg PO 1300,2100 Remove Patch 1 ea TRDERM BEDTIME - Plan Plan:: acute on chronic back pain Has a history of chronic T12 compression fracture, spinal stenosis Has been on Neurontin in the past CT of the lumbar spine showed chronic and degenerative changes For pain control I will increase the Neurontin, add Lidoderm patch, will use scheduled ibuprofen and Tylenol along with as needed Tylenol, ibuprofen, oxycodone discussed with physical and occupational therapy - it appears that the patient will need further therapy for safe discharge. Urinary tract infection urine culture: staph epi Treat with ceftriaxone Atrial fibrillation Continue metoprolol for rate control Continue apixaban for anticoagulation Hypertension Will treat with lisinopril History of atrial fibrillation Rate control with metoprolol Anticoagulation with apixaban Acute encephalopathy due to acute delirium due to history of dementia and hospital stay Try to minimize the narcotics, sedatives zyprexa as needed DVT prophylaxis with full dose anticoagulation with apixaban
[2018-04-19] MEDS: Doxazosin 2 MG Tab PO SCH (14:05)
[2018-04-19] MEDS: Gabapentin 100 MG Cap PO SCH ×2 (14:05→20:49)
[2018-04-19] MEDS: Finasteride 5 MG Tab PO SCH (14:06)
[2018-04-19] MEDS: ELIQUIS 5 MG PO SCH ×2 (14:06→20:46)
[2018-04-19] MEDS: Metoprolol Succinate 50 MG Tab.ER PO SCH (14:06)
[2018-04-19] MEDS: K PHOS 500 MG PO SCH ×2 (14:06→20:47)
[2018-04-19] MEDS: Acetaminophen 325 MG Tab PO SCH ×2 (14:49→22:38)
[2018-04-19] MEDS: cefTRIAXone 1 GM Vial IVPUSH SCH (14:52)
[2018-04-19] MEDS: Morphine 2 MG/ML Syringe IVPUSH PRN ×2 (16:02→20:51)
[2018-04-19] MEDS: atorvaSTATin 10 MG Tab PO SCH (20:49)
[2018-04-20] MEDS: Sodium Chloride 0.9% 10 ML Syringe FLUSH PRN ×4 (05:07→16:00)
[2018-04-20] MEDS: Morphine 2 MG/ML Syringe IVPUSH PRN ×2 (05:08→16:00)
[2018-04-20 06:51] LABS: CHLORIDE,CL 109 mmol/L (101-111); SODIUM,NA 140 mmol/L (135-145)
[2018-04-20] MEDS: Lidocaine 5% 700 MG Patch TOP SCH (08:26)
[2018-04-20] MEDS: Ibuprofen 400 MG Tab PO SCH ×2 (08:33→17:22)
[2018-04-20] MEDS: Gabapentin 100 MG Cap PO SCH ×2 (08:35→21:22)
[2018-04-20] MEDS: Doxazosin 2 MG Tab PO SCH (08:35)
[2018-04-20] MEDS: Finasteride 5 MG Tab PO SCH (08:36)
[2018-04-20] MEDS: Metoprolol Succinate 50 MG Tab.ER PO SCH (08:36)
[2018-04-20] MEDS: ELIQUIS 5 MG PO SCH ×2 (08:37→21:23)
[2018-04-20] MEDS: K PHOS 500 MG PO SCH ×2 (08:43→21:24)
[2018-04-20] MEDS: oxyCODONE 5 MG Tab PO PRN (08:49)
--- NOTE | 2018-04-20 10:35 | PCM.PN ---
- General Info Date of Service: 04/20/18 Admission Dx/Problem (Free Text): Admission Diagnosis/Problem Admission Diagnosis/Problem Back pain Subjective Update: The patient is an 87-year-old gentleman who has been living in an assisted living facility. The patient fell and hit the lower back. He has not been able to ambulate well since. Since admission the lower back pain continues. It is episodically moderate to severe. Worse with moving, better with rest. Started 2 days prior to admission after a fall. No associated syncopal episode. The confusion, agitation has significantly improved. Remains mildly confused. More awake and alert today. Eating better. He was noted to have significant urinary retention. Damon catheter was placed. There is hematuria noted after the patient has been pulling on it overnight. During the day today he is tolerating the Damon better. Functional Status: Denies: Pain Controlled - Review of Systems General: Denies: Fever Pulmonary: Denies: Shortness of Breath Cardiovascular: Denies: Chest Pain Gastrointestinal: Denies: Abdominal Pain Genitourinary: Reports: Retention Neurological: Reports: Confusion Psychiatric: Reports: Agitation (Improved) - Patient Data Vitals - Most Recent: Last Vital Signs Temp 36.4 C 04/20/18 04:22 Pulse 73 04/20/18 08:36 Resp 20 04/20/18 04:22 BP 146/109 H 04/20/18 08:36 Pulse Ox 90 L 04/20/18 04:22 Weight - Most Recent: 74.888 kg I&O - Last 24 Hours: Intake & Output 04/19/18 04/20/18 04/20/18 22:59 06:59 14:59 Intake Total 420 Output Total 1250 350 Balance -830 -350 Lab Results Last 24 Hours: Laboratory Results - last 24 hr 04/20/18 04/20/18 Range/Units 06:10 06:10 WBC 10.1 H (5.0-10.0) 10^3/uL RBC 4.72 (4.6-6.2) 10^6/uL Hgb 14.3 (14.0-18.0) g/dL Hct 42.2 (40.0-54.0) % MCV 89.4 (80-100) fL MCH 30.3 (27.0-34.0) pg MCHC 33.9 (33.0-35.0) g/dL Plt Count 133 L (150-450) 10^3/uL Neut % (Auto) 70.4 (42.2-75.2) % Lymph % (Auto) 15.9 L (20.5-50.1) % [place] % (Auto) 9.7 H (2-8) % Eos % (Auto) 3.6 H (1.0-3.0) % Baso % (Auto) 0.4 (0.0-1.0) % Sodium 140 (135-145) mmol/L Potassium 3.7 (3.6-5.0) mmol/L Chloride 109 (101-111) mmol/L Carbon Dioxide 22.0 (21.0-31.0) mmol/L Anion Gap 12.7 BUN 25 H (7-18) mg/dL Creatinine 1.0 (0.6-1.3) mg/dL Est Cr Clr Drug Dosing 54.09 mL/min Estimated GFR (MDRD) > 60 Glucose 137 H (74-105) mg/dL Calcium 8.4 (8.4-10.2) mg/dl [facility] Results Last 24 Hours: Microbiology 04/17/18 10:25 Urine Culture - Final Urine, Voided Staphylococcus Epidermidis Med Orders - Current: Current Medications Acetaminophen (Tylenol) 650 mg PO Q6H PRN PRN Reason: Pain/Fever Acetaminophen (Tylenol) 650 mg PO 1300,2100 [facility] Last Admin: 04/19/18 22:38 Dose: Not Given Atorvastatin Calcium (Lipitor) 10 mg PO BEDTIME [facility] Last Admin: 04/19/18 20:49 Dose: 10 mg Ceftriaxone Sodium (Rocephin) 1 gm IVPUSH Q24H [facility] Last Admin: 04/19/18 14:52 Dose: 1 gm Docusate Sodium (Colace) 100 mg PO BID PRN PRN Reason: Constipation Doxazosin Mesylate (Cardura) 4 mg PO DAILY [facility] Last Admin: 04/20/18 08:35 Dose: 4 mg Finasteride (Proscar) 5 mg PO DAILY [facility] Last Admin: 04/20/18 08:36 Dose: 5 mg Gabapentin (Neurontin) 200 mg PO BID [facility] Last Admin: 04/20/18 08:35 Dose: 200 mg Ibuprofen (Motrin) 400 mg PO Q8H PRN PRN Reason: pain moderate Ibuprofen (Motrin) 400 mg PO BIDMEALS [facility] Last Admin: 04/20/18 08:33 Dose: 400 mg Lidocaine (Lidoderm 5%) 700 mg TOP DAILY [facility] Last Admin: 04/20/18 08:26 Dose: 700 mg Magnesium Oxide (Magnesium Oxide) 250 mg PO DAILY [facility] Last Admin: 04/20/18 08:35 Dose: 250 mg Metoprolol Succinate (Toprol Xl) 100 mg PO DAILY [facility] Last Admin: 04/20/18 08:36 Dose: 100 mg Miscellaneous Information (Remove Patch) 1 ea TRDERM BEDTIME [facility] Last Admin: 04/19/18 21:04 Dose: Not Given Morphine Sulfate (Morphine) 1 mg IVPUSH Q2H PRN PRN Reason: Pain (severe 7-10) Last Admin: 04/20/18 05:08 Dose: 1 mg Olanzapine (Zyprexa) 5 mg PO Q6H PRN PRN Reason: agitation, restlessness Last Admin: 04/18/18 20:56 Dose: 5 mg Olanzapine (Zyprexa) 5 mg IM Q6H PRN PRN Reason: agitation, reslessness Last Admin: 04/19/18 01:46 Dose: 5 mg Ondansetron HCl (Zofran Odt) 4 mg PO Q6H PRN PRN Reason: nausea, able to take PO Oxycodone HCl (Oxycodone) 5 mg PO Q4H PRN PRN Reason: Pain (moderate 4-6) Last Admin: 04/20/18 08:49 Dose: 5 mg PtomEliquis 5 Mg (Tab) 0 each PO BID [facility] Last Admin: 04/20/18 08:37 Dose: 1 each PtomK-Phos 500 (Mg Tablet) 0 each PO BID [facility] Last Admin: 04/20/18 08:43 Dose: 250 each Sodium Chloride (Saline Flush) 10 ml FLUSH ASDIRECTED PRN PRN Reason: Keep Vein Open Last Admin: 04/20/18 05:15 Dose: 10 ml Zolpidem Tartrate (Ambien) 5 mg PO BEDTIME PRN PRN Reason: Sleep Discontinued Medications Acetaminophen (Tylenol) 650 mg PO BID [facility] Last Admin: 04/18/18 08:40 Dose: 650 mg Ceftriaxone Sodium (Rocephin) 1 gm IVPUSH ONETIME ONE Stop: 04/17/18 12:23 Last Admin: 04/17/18 13:19 Dose: 1 gm Ibuprofen (Motrin) 600 mg PO Q8H PRN PRN Reason: Pain Ibuprofen (Motrin) 400 mg PO BID [facility] Last Admin: 04/18/18 08:37 Dose: 400 mg Lorazepam (Ativan) 1 mg IVPUSH ONETIME ONE Stop: 04/19/18 03:04 Last Admin: 04/19/18 03:13 Dose: 1 mg Non-Formulary Medication (Apixaban [Eliquis]) 5 mg PO BID [facility] Non-Formulary Medication (Potassium [Potassium]) 250 mg PO BID [facility] - Exam General: Alert, Oriented Lungs: Clear to Auscultation, Normal Respiratory Effort Cardiovascular: Regular Rate, Regular Rhythm GI/Abdominal Exam: Normal Bowel Sounds, Soft, Non-Tender (Male) Exam: Other (Damon catheter in place with hematuria) Extremities: No Pedal Edema Neurological: No New Focal Deficit Psy/Mental Status: Alert, Normal Mood. No: Agitated - Problem List & Annotations (1) Acute encephalopathy SNOMED Code(s): 02779304, 213391688 Code(s): G93.40 - ENCEPHALOPATHY, UNSPECIFIED Status: Acute Current Visit : Yes (2) Low back pain SNOMED Code(s): 329262046 Code(s): M54.5 - LOW BACK PAIN Status: Acute Current Visit: Yes Qualifiers: Chronicity: acute Back pain laterality: bilateral Sciatica presence: without sciatica Qualified Code(s): M54.5 - Low back pain (3) UTI (urinary tract infection) SNOMED Code(s): 82675099 Code(s): N39.0 - URINARY TRACT INFECTION, SITE NOT SPECIFIED Status: Acute Current Visit: Yes Qualifiers: Urinary tract infection type: site unspecified Hematuria presence: without hematuria Qualified Code(s): N39.0 - Urinary tract infection, site not specified - Problem List Review Problem List Initiated/Reviewed/Updated: Yes - My Orders Last 24 Hours: My Active Orders 04/19/18 15:10 C DIFFICILE TOXIN BY PCR [MREF] Routine 04/19/18 16:57 Urinary Catheter Assessment [RC] 04/19/18 17:00 Damon Catheter Insertion [Insert Urinary Catheter] [OM.PC] Q24H - Plan Plan:: acute on chronic back pain Has a history of chronic T12 compression fracture, spinal stenosis Has been on Neurontin in the past CT of the lumbar spine showed chronic and degenerative changes For pain control I will increase the Neurontin, add Lidoderm patch, will use scheduled ibuprofen and Tylenol along with as needed Tylenol, ibuprofen, oxycodone discussed with physical and occupational therapy - it appears that the patient will need further therapy for safe discharge. Urinary tract infection urine culture: staph epi Treat with ceftriaxone Atrial fibrillation Continue metoprolol for rate control Continue apixaban for anticoagulation Follow hematuria Hypertension Will treat with lisinopril History of atrial fibrillation Rate control with metoprolol Anticoagulation with apixaban Acute encephalopathy due to acute delirium due to history of dementia and hospital stay Try to minimize the narcotics, sedatives zyprexa as needed Improved Urinary retention Only catheter placed, we'll monitor. Hematuria likely relates to trauma. DVT prophylaxis with full dose anticoagulation with apixaban
[2018-04-20] MEDS: Acetaminophen 325 MG Tab PO SCH ×2 (13:05→21:25)
[2018-04-20] MEDS: cefTRIAXone 1 GM Vial IVPUSH SCH (13:10)
[2018-04-20] MEDS: atorvaSTATin 10 MG Tab PO SCH (21:21)
[2018-04-21] MEDS: OLANZapine 5 MG Tab PO PRN (03:53)
[2018-04-21] MEDS: Morphine 2 MG/ML Syringe IVPUSH PRN ×2 (04:36→08:09)
[2018-04-21 06:57] LABS: CHLORIDE,CL 109 mmol/L (101-111); SODIUM,NA 140 mmol/L (135-145)
[2018-04-21] MEDS: Sodium Chloride 0.9% 10 ML Syringe FLUSH PRN ×2 (08:08→13:53)
[2018-04-21] MEDS: Lidocaine 5% 700 MG Patch TOP SCH (08:17)
[2018-04-21] MEDS: Ibuprofen 400 MG Tab PO SCH ×3 (08:19→17:59)
[2018-04-21] MEDS: Gabapentin 100 MG Cap PO SCH (08:20)
[2018-04-21] MEDS: Metoprolol Succinate 50 MG Tab.ER PO SCH (08:20)
[2018-04-21] MEDS: Doxazosin 2 MG Tab PO SCH (08:21)
[2018-04-21] MEDS: ELIQUIS 5 MG PO SCH ×2 (08:22→21:11)
[2018-04-21] MEDS: Finasteride 5 MG Tab PO SCH (08:22)
[2018-04-21] MEDS: K PHOS 500 MG PO SCH ×2 (08:25→21:12)
[2018-04-21] MEDS ORDERED: Potassium Chloride 10 MEQ Tab.ER PO ONE (13:32)
--- NOTE | 2018-04-21 13:44 | PCM.PN ---
- General Info Date of Service: 04/21/18 Admission Dx/Problem (Free Text): Admission Diagnosis/Problem Admission Diagnosis/Problem Back pain Subjective Update: The patient is an 87-year-old gentleman who has been living in an assisted living facility. The patient fell and hit the lower back. He has not been able to ambulate well since. Since admission the lower back pain continues. It is episodically moderate to severe. Worse with moving, better with rest. Started 2 days prior to admission after a fall. No associated syncopal episode. The confusion, agitation has improved but still present He was noted to have significant urinary retention. Herrera catheter was placed. Continued hematuria noted after the patient has been pulling on it overnight. removed herrera early am - Review of Systems General: Reports: Weakness. Denies: Fever Pulmonary: Denies: Shortness of Breath Cardiovascular: Denies: Chest Pain Gastrointestinal: Denies: Abdominal Pain Musculoskeletal: Reports: Back Pain Neurological: Reports: Confusion Psychiatric: Reports: Agitation - Patient Data Vitals - Most Recent: Last Vital Signs Temp 36.6 C 04/21/18 11:00 Pulse 81 04/21/18 11:00 Resp 20 04/21/18 11:00 BP 124/76 04/21/18 11:00 Pulse Ox 90 L 04/21/18 11:00 Weight - Most Recent: 74.888 kg I&O - Last 24 Hours: Intake & Output 04/20/18 04/21/18 04/21/18 22:59 06:59 14:59 Intake Total 350 Output Total 450 Balance -100 Lab Results Last 24 Hours: Laboratory Results - last 24 hr 04/21/18 04/21/18 Range/Units 05:40 05:40 WBC 9.6 (5.0-10.0) 10^3/uL RBC 4.45 L (4.6-6.2) 10^6/uL Hgb 13.6 L (14.0-18.0) g/dL Hct 40.1 (40.0-54.0) % MCV 90.1 (80-100) fL MCH 30.6 (27.0-34.0) pg MCHC 33.9 (33.0-35.0) g/dL Plt Count 142 L (150-450) 10^3/uL Neut % (Auto) 73.1 (42.2-75.2) % Lymph % (Auto) 11.4 L (20.5-50.1) % [place] % (Auto) 8.9 H (2-8) % Eos % (Auto) 6.1 H (1.0-3.0) % Baso % (Auto) 0.5 (0.0-1.0) % Sodium 140 (135-145) mmol/L Potassium 3.4 L (3.6-5.0) mmol/L Chloride 109 (101-111) mmol/L Carbon Dioxide 21.0 (21.0-31.0) mmol/L Anion Gap 13.4 BUN 32 H (7-18) mg/dL Creatinine 1.0 (0.6-1.3) mg/dL Est Cr Clr Drug Dosing 54.09 mL/min Estimated GFR (MDRD) > 60 Glucose 127 H (74-105) mg/dL Calcium 8.2 L (8.4-10.2) mg/dl Med Orders - Current: Current Medications Acetaminophen (Tylenol) 650 mg PO Q6H PRN PRN Reason: Pain/Fever Acetaminophen (Tylenol) 650 mg PO 1300,2100 [facility] Last Admin: 04/20/18 21:25 Dose: 650 mg Atorvastatin Calcium (Lipitor) 10 mg PO BEDTIME [facility] Last Admin: 04/20/18 21:21 Dose: 10 mg Ceftriaxone Sodium (Rocephin) 1 gm IVPUSH Q24H [facility] Last Admin: 04/20/18 13:10 Dose: 1 gm Docusate Sodium (Colace) 100 mg PO BID PRN PRN Reason: Constipation Doxazosin Mesylate (Cardura) 4 mg PO DAILY [facility] Last Admin: 04/21/18 08:21 Dose: 4 mg Finasteride (Proscar) 5 mg PO DAILY [facility] Last Admin: 04/21/18 08:22 Dose: 5 mg Gabapentin (Neurontin) 200 mg PO BID [facility] Last Admin: 04/21/18 08:20 Dose: 200 mg Potassium Chloride/Sodium Chloride (Normal Saline With 20 Meq Kcl) 1,000 mls @ 75 mls/hr IV ASDIRECTED [facility] Ibuprofen (Motrin) 400 mg PO Q8H PRN PRN Reason: pain moderate Ibuprofen (Motrin) 400 mg PO BIDMEALS [facility] Last Admin: 04/21/18 08:19 Dose: 400 mg Lidocaine (Lidoderm 5%) 700 mg TOP DAILY [facility] Last Admin: 04/21/18 08:17 Dose: 700 mg Magnesium Oxide (Magnesium Oxide) 250 mg PO DAILY [facility] Last Admin: 04/21/18 08:20 Dose: 250 mg Metoprolol Succinate (Toprol Xl) 100 mg PO DAILY [facility] Last Admin: 04/21/18 08:20 Dose: 100 mg Miscellaneous Information (Remove Patch) 1 ea TRDERM BEDTIME [facility] Last Admin: 04/20/18 21:32 Dose: Not Given Morphine Sulfate (Morphine) 1 mg IVPUSH Q2H PRN PRN Reason: Pain (severe 7-10) Last Admin: 04/21/18 08:09 Dose: 1 mg Olanzapine (Zyprexa) 5 mg PO Q6H PRN PRN Reason: agitation, restlessness Last Admin: 04/21/18 03:53 Dose: 5 mg Olanzapine (Zyprexa) 5 mg IM Q6H PRN PRN Reason: agitation, reslessness Last Admin: 04/19/18 01:46 Dose: 5 mg Ondansetron HCl (Zofran Odt) 4 mg PO Q6H PRN PRN Reason: nausea, able to take PO Oxycodone HCl (Oxycodone) 5 mg PO Q4H PRN PRN Reason: Pain (moderate 4-6) Last Admin: 04/20/18 08:49 Dose: 5 mg PtomEliquis 5 Mg (Tab) 0 each PO BID [facility] Last Admin: 04/21/18 08:22 Dose: 1 each PtomK-Phos 500 (Mg Tablet) 0 each PO BID [facility] Last Admin: 04/21/18 08:25 Dose: 250 each Potassium Chloride (Klor-Con 10) 20 meq PO ONETIME ONE Stop: 04/21/18 13:33 Sodium Chloride (Saline Flush) 10 ml FLUSH ASDIRECTED PRN PRN Reason: Keep Vein Open Last Admin: 04/21/18 08:08 Dose: 10 ml Zolpidem Tartrate (Ambien) 5 mg PO BEDTIME PRN PRN Reason: Sleep Discontinued Medications Acetaminophen (Tylenol) 650 mg PO BID [facility] Last Admin: 04/18/18 08:40 Dose: 650 mg Ceftriaxone Sodium (Rocephin) 1 gm IVPUSH ONETIME ONE Stop: 04/17/18 12:23 Last Admin: 04/17/18 13:19 Dose: 1 gm Ibuprofen (Motrin) 600 mg PO Q8H PRN PRN Reason: Pain Ibuprofen (Motrin) 400 mg PO BID [facility] Last Admin: 04/18/18 08:37 Dose: 400 mg Lorazepam (Ativan) 1 mg IVPUSH ONETIME ONE Stop: 04/19/18 03:04 Last Admin: 04/19/18 03:13 Dose: 1 mg Non-Formulary Medication (Apixaban [Eliquis]) 5 mg PO BID [facility] Non-Formulary Medication (Potassium [Potassium]) 250 mg PO BID [facility] - Exam General: Alert, Oriented (partially) Neck: Supple Lungs: Clear to Auscultation, Normal Respiratory Effort Cardiovascular: Regular Rate, Regular Rhythm Extremities: No Pedal Edema Skin: Warm, Dry Neurological: No New Focal Deficit Psy/Mental Status: Alert, Agitated (periodically) - Problem List & Annotations (1) Acute encephalopathy SNOMED Code(s): 98906367, 892222221 Code(s): G93.40 - ENCEPHALOPATHY, UNSPECIFIED Status: Acute Current Visit : Yes (2) Low back pain SNOMED Code(s): 190012959 Code(s): M54.5 - LOW BACK PAIN Status: Acute Current Visit: Yes Qualifiers: Chronicity: acute Back pain laterality: bilateral Sciatica presence: without sciatica Qualified Code(s): M54.5 - Low back pain (3) UTI (urinary tract infection) SNOMED Code(s): 57916997 Code(s): N39.0 - URINARY TRACT INFECTION, SITE NOT SPECIFIED Status: Acute Current Visit: Yes Qualifiers: Urinary tract infection type: site unspecified Hematuria presence: without hematuria Qualified Code(s): N39.0 - Urinary tract infection, site not specified - Problem List Review Problem List Initiated/Reviewed/Updated: Yes - My Orders Last 24 Hours: My Active Orders 04/21/18 13:32 Potassium Chloride [Klor-Con 10] 20 meq PO ONETIME ONE 04/21/18 13:45 NS + KCl 20mEq/L [Normal Saline with 20 mEq KCl] 1,000 ml IV ASDIRECTED - Plan Plan:: acute on chronic back pain Has a history of chronic T12 compression fracture, spinal stenosis Has been on Neurontin in the past CT of the lumbar spine showed chronic and degenerative changes For pain control I will increase the Neurontin, add Lidoderm patch, will use scheduled ibuprofen and Tylenol along with as needed Tylenol, ibuprofen, oxycodone discussed with physical and occupational therapy - it appears that the patient will need further therapy for safe discharge. Urinary tract infection urine culture: staph epi Treat with ceftriaxone Atrial fibrillation Continue metoprolol for rate control Continue apixaban for anticoagulation Follow hematuria Hypertension Will treat with lisinopril History of atrial fibrillation Rate control with metoprolol Anticoagulation with apixaban Acute encephalopathy due to acute delirium due to history of dementia and hospital stay Try to minimize the narcotics, sedatives zyprexa as needed Urinary retention difficult to maintainfoley catheter Removed [employer] Hematuria likely relates to trauma. We'll follow for urinary retention DVT prophylaxis with full dose anticoagulation with apixaban
[2018-04-21] MEDS: cefTRIAXone 1 GM Vial IVPUSH SCH (13:54)
[2018-04-21] MEDS: NS + KCl 20mEq/L 1,000 ML IV SCH (14:12)
[2018-04-21] MEDS: Acetaminophen 325 MG Tab PO SCH ×2 (14:20→21:17)
[2018-04-21 20:56] LABS: O2 DELIVERY DEVICE ROOM AIR
[2018-04-21 21:06] LABS: BASE EXCESS ARTERIAL -3 mmol/L ((-2)-(+3)); BICARBONATE,ARTERIAL 19.1 mmol/L (22-26); O2 SATURATION ARTERIAL 90 % (95-100); PCO2 ARTERIAL 27 mmHg (35-45); PO2 ARTERIAL 57 mmHg (70-100)
[2018-04-21] MEDS: atorvaSTATin 10 MG Tab PO SCH (21:10)
[2018-04-22] MEDS: Morphine 2 MG/ML Syringe IVPUSH PRN (01:05)
[2018-04-22] MEDS: Ibuprofen 400 MG Tab PO SCH ×2 (08:17→17:28)
[2018-04-22] MEDS: K PHOS 500 MG PO SCH ×2 (08:21→20:46)
[2018-04-22] MEDS: Lidocaine 5% 700 MG Patch TOP SCH (08:21)
[2018-04-22] MEDS: ELIQUIS 5 MG PO SCH (08:21)
[2018-04-22] MEDS: Finasteride 5 MG Tab PO SCH (08:21)
[2018-04-22] MEDS: Metoprolol Succinate 50 MG Tab.ER PO SCH (08:25)
[2018-04-22] MEDS: Doxazosin 2 MG Tab PO SCH (08:25)
--- NOTE | 2018-04-22 10:33 | PCM.PN ---
- General Info Date of Service: 04/22/18 Admission Dx/Problem (Free Text): Admission Diagnosis/Problem Admission Diagnosis/Problem Back pain Subjective Update: The patient is an 87-year-old gentleman who has been living in an assisted living facility. The patient fell and hit the lower back. He has not been able to ambulate well since. He has a history of dementia. Was mildly confused on admission. Since the first night has been having increased delirium. Since admission the lower back pain continues. It is episodically moderate to severe. Worse with moving, better with rest. Started 2 days prior to admission after a fall. No associated syncopal episode. The confusion, agitation has improved but still present He was noted to have significant urinary retention. Damon catheter was placed. Continued hematuria noted after the patient has been pulling on it overnight. We tried to remove Damon but continued to have significant retention and the Damon was replaced. Functional Status: Denies: Pain Controlled - Review of Systems General: Denies: Fever, Weakness Pulmonary: Denies: Shortness of Breath Cardiovascular: Denies: Chest Pain Gastrointestinal: Denies: Abdominal Pain Neurological: Reports: Confusion - Patient Data Vitals - Most Recent: Last Vital Signs Temp 36.9 C 04/22/18 07:47 Pulse 80 04/22/18 07:47 Resp 20 04/22/18 07:47 BP 143/64 H 04/22/18 07:47 Pulse Ox 96 04/22/18 07:47 Weight - Most Recent: 74.888 kg I&O - Last 24 Hours: Intake & Output 04/21/18 04/22/18 04/22/18 22:59 06:59 14:59 Intake Total 282 764 120 Output Total 1500 425 Balance -1218 339 120 Lab Results Last 24 Hours: Laboratory Results - last 24 hr 04/21/18 Range/Units 20:54 ABG pH 7.46 H (7.35-7.45) ABG pCO2 27 L (35-45) mmHg ABG pO2 57 L (70-100) mmHg ABG HCO3 19.1 L (22-26) mmol/L ABG O2 Saturation 90 L (95-100) % ABG Base Excess -3 L ((-2)-(+3)) mmol/L O2 Delivery Device Room air Med Orders - Current: Current Medications Acetaminophen (Tylenol) 650 mg PO Q6H PRN PRN Reason: Pain/Fever Acetaminophen (Tylenol) 650 mg PO 1300,2100 [facility] Last Admin: 04/21/18 21:17 Dose: 650 mg Atorvastatin Calcium (Lipitor) 10 mg PO BEDTIME [facility] Last Admin: 04/21/18 21:10 Dose: 10 mg Ceftriaxone Sodium (Rocephin) 1 gm IVPUSH Q24H [facility] Last Admin: 04/21/18 13:54 Dose: 1 gm Docusate Sodium (Colace) 100 mg PO BID PRN PRN Reason: Constipation Doxazosin Mesylate (Cardura) 4 mg PO DAILY [facility] Last Admin: 04/21/18 08:21 Dose: 4 mg Finasteride (Proscar) 5 mg PO DAILY [facility] Last Admin: 04/21/18 08:22 Dose: 5 mg Potassium Chloride/Sodium Chloride (Normal Saline With 20 Meq Kcl) 1,000 mls @ 75 mls/hr IV ASDIRECTED [facility] Last Admin: 04/21/18 14:12 Dose: 75 mls/hr Ibuprofen (Motrin) 400 mg PO Q8H PRN PRN Reason: pain moderate Ibuprofen (Motrin) 400 mg PO BIDMEALS [facility] Last Admin: 04/21/18 17:59 Dose: 400 mg Lidocaine (Lidoderm 5%) 700 mg TOP DAILY [facility] Last Admin: 04/21/18 08:17 Dose: 700 mg Magnesium Oxide (Magnesium Oxide) 250 mg PO DAILY [facility] Last Admin: 04/21/18 08:20 Dose: 250 mg Methylprednisolone (Medrol) 4 mg PO TID [facility] Metoprolol Succinate (Toprol Xl) 100 mg PO DAILY [facility] Last Admin: 04/21/18 08:20 Dose: 100 mg Miscellaneous Information (Remove Patch) 1 ea TRDERM BEDTIME [facility] Last Admin: 04/21/18 21:12 Dose: Not Given Morphine Sulfate (Morphine) 1 mg IVPUSH Q2H PRN PRN Reason: Pain (severe 7-10) Last Admin: 04/22/18 01:05 Dose: 1 mg Olanzapine (Zyprexa) 5 mg PO Q6H PRN PRN Reason: agitation, restlessness Last Admin: 04/21/18 03:53 Dose: 5 mg Olanzapine (Zyprexa) 5 mg IM Q6H PRN PRN Reason: agitation, reslessness Last Admin: 04/19/18 01:46 Dose: 5 mg Ondansetron HCl (Zofran Odt) 4 mg PO Q6H PRN PRN Reason: nausea, able to take PO Oxycodone HCl (Oxycodone) 5 mg PO Q4H PRN PRN Reason: Pain (severe) Last Admin: 04/20/18 08:49 Dose: 5 mg PtomEliquis 5 Mg (Tab) 0 each PO BID [facility] Last Admin: 04/21/18 21:11 Dose: 1 each PtomK-Phos 500 (Mg Tablet) 0 each PO BID [facility] Last Admin: 04/21/18 21:12 Dose: 250 each Sodium Chloride (Saline Flush) 10 ml FLUSH ASDIRECTED PRN PRN Reason: Keep Vein Open Last Admin: 04/21/18 13:53 Dose: 10 ml Zolpidem Tartrate (Ambien) 5 mg PO BEDTIME PRN PRN Reason: Sleep Discontinued Medications Acetaminophen (Tylenol) 650 mg PO BID [facility] Last Admin: 04/18/18 08:40 Dose: 650 mg Ceftriaxone Sodium (Rocephin) 1 gm IVPUSH ONETIME ONE Stop: 04/17/18 12:23 Last Admin: 04/17/18 13:19 Dose: 1 gm Gabapentin (Neurontin) 200 mg PO BID [facility] Last Admin: 04/21/18 08:20 Dose: 200 mg Ibuprofen (Motrin) 600 mg PO Q8H PRN PRN Reason: Pain Ibuprofen (Motrin) 400 mg PO BID [facility] Last Admin: 04/18/18 08:37 Dose: 400 mg Lorazepam (Ativan) 1 mg IVPUSH ONETIME ONE Stop: 04/19/18 03:04 Last Admin: 04/19/18 03:13 Dose: 1 mg Non-Formulary Medication (Apixaban [Eliquis]) 5 mg PO BID [facility] Non-Formulary Medication (Potassium [Potassium]) 250 mg PO BID [facility] Potassium Chloride (Klor-Con 10) 20 meq PO ONETIME ONE Stop: 04/21/18 13:33 Last Admin: 04/21/18 14:22 Dose: 20 meq - Exam General: Alert. No: Oriented, Sedated Neck: Supple Lungs: Clear to Auscultation, Normal Respiratory Effort Cardiovascular: Regular Rate, Regular Rhythm GI/Abdominal Exam: Normal Bowel Sounds, Soft, Non-Tender (Male) Exam: Other (Damon catheter with hematuria) Extremities: No Pedal Edema Skin: Warm Neurological: No New Focal Deficit Psy/Mental Status: Alert, Normal Mood. No: Agitated - Problem List & Annotations (1) Acute encephalopathy SNOMED Code(s): 22818949, 404337381 Code(s): G93.40 - ENCEPHALOPATHY, UNSPECIFIED Status: Acute Current Visit : Yes (2) Low back pain SNOMED Code(s): 416784988 Code(s): M54.5 - LOW BACK PAIN Status: Acute Current Visit: Yes Qualifiers: Chronicity: acute Back pain laterality: bilateral Sciatica presence: without sciatica Qualified Code(s): M54.5 - Low back pain (3) UTI (urinary tract infection) SNOMED Code(s): 73142836 Code(s): N39.0 - URINARY TRACT INFECTION, SITE NOT SPECIFIED Status: Acute Current Visit: Yes Qualifiers: Urinary tract infection type: site unspecified Hematuria presence: without hematuria Qualified Code(s): N39.0 - Urinary tract infection, site not specified - Problem List Review Problem List Initiated/Reviewed/Updated: Yes - My Orders Last 24 Hours: My Active Orders 04/21/18 13:45 NS + KCl 20mEq/L [Normal Saline with 20 mEq KCl] 1,000 ml IV ASDIRECTED 04/21/18 13:47 Communication Order [RC] DAILY 04/21/18 13:50 Cooling Warming Measures [RC] ASDIRECTED K Pad [Heat Therapy] [OM.PC] Routine 04/22/18 10:21 BASIC METABOLIC PANEL,BMP [CHEM] Routine 04/22/18 14:00 methylPREDNISolone [Medrol] 4 mg PO TID 04/23/18 05:15 BASIC METABOLIC PANEL,BMP [CHEM] AM CBC WITH AUTO DIFF [HEME] AM - Plan Plan:: acute on chronic back pain Has a history of chronic T12 compression fracture, spinal stenosis Has been on Neurontin in the past CT of the lumbar spine showed chronic and degenerative changes For pain control I will continue Neurontin, continue Lidoderm patch, will use scheduled ibuprofen and Tylenol along with as needed Tylenol, ibuprofen, oxycodone Try to stop IV morphine given the confusion Start Medrol to help with pain discussed with physical and occupational therapy - it appears that the patient will need further therapy for safe discharge. Urinary tract infection urine culture: staph epi Treat with ceftriaxone Atrial fibrillation Continue metoprolol for rate control We will stop apixaban due to continued hematuria Hypertension Will treat with lisinopril History of atrial fibrillation Rate control with metoprolol Stop Anticoagulation with apixaban Acute encephalopathy due to acute delirium due to history of dementia and hospital stay Try to minimize the narcotics, sedatives zyprexa as needed Urinary retention Had to replace the Damon catheter Hematuria likely relates to trauma. DVT prophylaxis with full dose anticoagulation with mobilization and SCDs
[2018-04-22 12:07] LABS: CHLORIDE,CL 112 mmol/L (101-111); SODIUM,NA 140 mmol/L (135-145)
[2018-04-22] MEDS: oxyCODONE 5 MG Tab PO PRN (12:25)
[2018-04-22] MEDS: Iron Polysaccharides Complex 150 MG Cap PO SCH (12:25)
[2018-04-22] MEDS: Acetaminophen 325 MG Tab PO SCH ×2 (13:36→20:49)
[2018-04-22] MEDS: cefTRIAXone 1 GM Vial IVPUSH SCH (13:36)
[2018-04-22] MEDS: methylPREDNISolone 4 MG Tab 21 Tab/Dosepak PO SCH ×2 (13:37→20:43)
[2018-04-22] MEDS: Docusate Sodium 100 MG Cap PO PRN (17:27)
[2018-04-22] MEDS: NS + KCl 20mEq/L 1,000 ML IV SCH (17:28)
[2018-04-22] MEDS: atorvaSTATin 10 MG Tab PO SCH (20:43)
[2018-04-23] MEDS: oxyCODONE 5 MG Tab PO PRN (02:44)
[2018-04-23] MEDS: NS + KCl 20mEq/L 1,000 ML IV SCH (06:37)
[2018-04-23 06:53] LABS: CHLORIDE,CL 112 mmol/L (101-111); SODIUM,NA 139 mmol/L (135-145)
[2018-04-23] MEDS: Finasteride 5 MG Tab PO SCH (08:16)
[2018-04-23] MEDS: Iron Polysaccharides Complex 150 MG Cap PO SCH (08:16)
[2018-04-23] MEDS: Ibuprofen 400 MG Tab PO SCH ×2 (08:17→17:39)
[2018-04-23] MEDS: Metoprolol Succinate 50 MG Tab.ER PO SCH (08:17)
[2018-04-23] MEDS: Doxazosin 2 MG Tab PO SCH (08:18)
[2018-04-23] MEDS: Lidocaine 5% 700 MG Patch TOP SCH (08:19)
[2018-04-23] MEDS: methylPREDNISolone 4 MG Tab 21 Tab/Dosepak PO SCH ×3 (08:20→20:42)
[2018-04-23] MEDS: K PHOS 500 MG PO SCH ×2 (08:22→20:43)
--- NOTE | 2018-04-23 10:28 | PCM.PN ---
- General Info Date of Service: 04/23/18 Admission Dx/Problem (Free Text): Admission Diagnosis/Problem Admission Diagnosis/Problem Back pain Subjective Update: The patient is an 87-year-old gentleman who has been living in an assisted living facility. The patient fell and hit the lower back. He has not been able to ambulate well since. He has a history of dementia. Was mildly confused on admission. Since the first night has been having increased delirium. Since admission the lower back pain continues. It is episodically moderate to severe. Worse with moving, better with rest. Started 2 days prior to admission after a fall. No associated syncopal episode. The confusion, agitation has improved but still present He was noted to have significant urinary retention. Damon catheter was placed. Continued hematuria noted after the patient has been pulling on it overnight. We tried to remove Damon but continued to have significant retention and the Damon was replaced. - Review of Systems General: Reports: Weakness Pulmonary: Reports: No Symptoms Cardiovascular: Reports: No Symptoms Gastrointestinal: Reports: No Symptoms Neurological: Reports: Confusion Psychiatric: Reports: Confusion, Anxiety, Agitation - Patient Data Vitals - Most Recent: Last Vital Signs Temp 36.8 C 04/23/18 07:37 Pulse 78 04/23/18 08:17 Resp 20 04/23/18 07:37 BP 174/80 H 04/23/18 08:18 Pulse Ox 95 04/23/18 07:37 Weight - Most Recent: 74.888 kg I&O - Last 24 Hours: Intake & Output 04/22/18 04/23/18 04/23/18 22:59 06:59 14:59 Intake Total 1159 1646 Output Total 600 540 Balance 559 1106 Lab Results Last 24 Hours: Laboratory Results - last 24 hr 04/22/18 04/22/18 04/23/18 Range/Units 11:33 11:33 06:05 WBC 9.1 9.9 (5.0-10.0) 10^3/uL RBC 4.32 L 4.19 L (4.6-6.2) 10^6/uL Hgb 13.3 L 12.8 L (14.0-18.0) g/dL Hct 39.0 L 37.6 L (40.0-54.0) % MCV 90.3 89.7 (80-100) fL MCH 30.8 30.5 (27.0-34.0) pg MCHC 34.1 34.0 (33.0-35.0) g/dL Plt Count 144 L 150 (150-450) 10^3/uL Neut % (Auto) 68.2 71.2 (42.2-75.2) % Lymph % (Auto) 14.3 L 16.7 L (20.5-50.1) % Nuckolls % (Auto) 10.3 H 9.7 H (2-8) % Eos % (Auto) 6.5 H 2.1 (1.0-3.0) % Baso % (Auto) 0.7 0.3 (0.0-1.0) % Sodium 140 (135-145) mmol/L Potassium 4.2 (3.6-5.0) mmol/L Chloride 112 H (101-111) mmol/L Carbon Dioxide 21.0 (21.0-31.0) mmol/L Anion Gap 11.2 BUN 28 H (7-18) mg/dL Creatinine 0.8 (0.6-1.3) mg/dL Est Cr Clr Drug Dosing 67.61 mL/min Estimated GFR (MDRD) > 60 Glucose 134 H (74-105) mg/dL Calcium 8.2 L (8.4-10.2) mg/dl 04/23/18 Range/Units 06:05 WBC (5.0-10.0) 10^3/uL RBC (4.6-6.2) 10^6/uL Hgb (14.0-18.0) g/dL Hct (40.0-54.0) % MCV (80-100) fL MCH (27.0-34.0) pg MCHC (33.0-35.0) g/dL Plt Count (150-450) 10^3/uL Neut % (Auto) (42.2-75.2) % Lymph % (Auto) (20.5-50.1) % Nuckolls % (Auto) (2-8) % Eos % (Auto) (1.0-3.0) % Baso % (Auto) (0.0-1.0) % Sodium 139 (135-145) mmol/L Potassium 4.0 (3.6-5.0) mmol/L Chloride 112 H (101-111) mmol/L Carbon Dioxide 21.0 (21.0-31.0) mmol/L Anion Gap 10.0 BUN 21 H (7-18) mg/dL Creatinine 0.7 (0.6-1.3) mg/dL Est Cr Clr Drug Dosing 77.27 mL/min Estimated GFR (MDRD) > 60 Glucose 133 H (74-105) mg/dL Calcium 8.2 L (8.4-10.2) mg/dl Med Orders - Current: Current Medications Acetaminophen (Tylenol) 650 mg PO Q6H PRN PRN Reason: Pain/Fever Acetaminophen (Tylenol) 650 mg PO 1300,2100 [facility] Last Admin: 04/22/18 20:49 Dose: 650 mg Atorvastatin Calcium (Lipitor) 10 mg PO BEDTIME [facility] Last Admin: 04/22/18 20:43 Dose: 10 mg Ceftriaxone Sodium (Rocephin) 1 gm IVPUSH Q24H [facility] Last Admin: 04/22/18 13:36 Dose: 1 gm Docusate Sodium (Colace) 100 mg PO BID PRN PRN Reason: Constipation Last Admin: 04/22/18 17:27 Dose: 100 mg Doxazosin Mesylate (Cardura) 4 mg PO DAILY [facility] Last Admin: 04/23/18 08:18 Dose: 4 mg Finasteride (Proscar) 5 mg PO DAILY [facility] Last Admin: 04/23/18 08:16 Dose: 5 mg Finasteride (Proscar) 5 mg PO DAILY [facility] Ibuprofen (Motrin) 400 mg PO Q8H PRN PRN Reason: pain moderate Ibuprofen (Motrin) 400 mg PO BIDMEALS [facility] Last Admin: 04/23/18 08:17 Dose: 400 mg Lidocaine (Lidoderm 5%) 700 mg TOP DAILY [facility] Last Admin: 04/23/18 08:19 Dose: 700 mg Magnesium Oxide (Magnesium Oxide) 250 mg PO DAILY [facility] Last Admin: 04/23/18 08:16 Dose: 250 mg Methylprednisolone (Medrol) 4 mg PO TID [facility] Last Admin: 04/23/18 08:20 Dose: 4 mg Metoprolol Succinate (Toprol Xl) 100 mg PO DAILY [facility] Last Admin: 04/23/18 08:17 Dose: 100 mg Miscellaneous Information (Remove Patch) 1 ea TRDERM BEDTIME [facility] Last Admin: 04/22/18 21:00 Dose: Not Given Olanzapine (Zyprexa) 5 mg PO Q6H PRN PRN Reason: agitation, restlessness Last Admin: 04/21/18 03:53 Dose: 5 mg Olanzapine (Zyprexa) 5 mg IM Q6H PRN PRN Reason: agitation, reslessness Last Admin: 04/19/18 01:46 Dose: 5 mg Ondansetron HCl (Zofran Odt) 4 mg PO Q6H PRN PRN Reason: nausea, able to take PO Oxycodone HCl (Oxycodone) 5 mg PO Q4H PRN PRN Reason: Pain (severe) Last Admin: 04/23/18 02:44 Dose: 5 mg PtomK-Phos 500 (Mg Tablet) 0 each PO BID [facility] Last Admin: 04/23/18 08:22 Dose: 250 each Polysaccharide Iron Complex (Ferrex 150) 150 mg PO DAILY [facility] Last Admin: 04/23/18 08:16 Dose: 150 mg Quetiapine Fumarate (Seroquel) 25 mg PO BEDTIME [facility] Sodium Chloride (Saline Flush) 10 ml FLUSH ASDIRECTED PRN PRN Reason: Keep Vein Open Last Admin: 04/21/18 13:53 Dose: 10 ml Tamsulosin HCl (Flomax) 0.4 mg PO PCBREAKFAST [facility] Zolpidem Tartrate (Ambien) 5 mg PO BEDTIME PRN PRN Reason: Sleep Discontinued Medications Acetaminophen (Tylenol) 650 mg PO BID [facility] Last Admin: 04/18/18 08:40 Dose: 650 mg Ceftriaxone Sodium (Rocephin) 1 gm IVPUSH ONETIME ONE Stop: 04/17/18 12:23 Last Admin: 04/17/18 13:19 Dose: 1 gm Gabapentin (Neurontin) 200 mg PO BID [facility] Last Admin: 04/21/18 08:20 Dose: 200 mg Potassium Chloride/Sodium Chloride (Normal Saline With 20 Meq Kcl) 1,000 mls @ 75 mls/hr IV ASDIRECTED [facility] Last Admin: 04/23/18 06:37 Dose: 75 mls/hr Ibuprofen (Motrin) 600 mg PO Q8H PRN PRN Reason: Pain Ibuprofen (Motrin) 400 mg PO BID [facility] Last Admin: 04/18/18 08:37 Dose: 400 mg Lorazepam (Ativan) 1 mg IVPUSH ONETIME ONE Stop: 04/19/18 03:04 Last Admin: 04/19/18 03:13 Dose: 1 mg Morphine Sulfate (Morphine) 1 mg IVPUSH Q2H PRN PRN Reason: Pain (severe 7-10) Last Admin: 04/22/18 01:05 Dose: 1 mg Non-Formulary Medication (Apixaban [Eliquis]) 5 mg PO BID [facility] Non-Formulary Medication (Potassium [Potassium]) 250 mg PO BID [facility] PtomEliquis 5 Mg (Tab) 0 each PO BID [facility] Last Admin: 04/22/18 08:21 Dose: 5 each Potassium Chloride (Klor-Con 10) 20 meq PO ONETIME ONE Stop: 04/21/18 13:33 Last Admin: 04/21/18 14:22 Dose: 20 meq - Exam General: Alert Lungs: Clear to Auscultation Cardiovascular: Regular Rate, No Murmurs GI/Abdominal Exam: Normal Bowel Sounds Psy/Mental Status: Anxious, Agitated - Problem List Review Problem List Initiated/Reviewed/Updated: Yes - My Orders Last 24 Hours: My Active Orders 04/23/18 10:30 Finasteride [Proscar] 5 mg PO DAILY 04/23/18 21:00 QUEtiapine [SEROquel] 25 mg PO BEDTIME 04/24/18 08:30 Tamsulosin [Flomax] 0.4 mg PO PCBREAKFAST - Plan Plan:: acute on chronic back pain Has a history of chronic T12 compression fracture, spinal stenosis Has been on Neurontin in the past CT of the lumbar spine showed chronic and degenerative changes Urinary tract infection urine culture: staph epi Treat with ceftriaxone Atrial fibrillation Apixaban stopped because of hematuria Hypertension Will treat with lisinopril History of atrial fibrillation Rate control with metoprolol Stopped Anticoagulation with apixaban Acute encephalopathy due to acute delirium due to history of dementia and hospital stay Try to minimize the narcotics, sedatives zyprexa as needed Urinary retention Plan: Discontinue morphine Start patient on Seroquel 25 mg nightly Discontinue intravenous fluid Start patient on finasteride 5 mg daily Start patient on Flomax 0.4 mg daily
[2018-04-23] MEDS ORDERED: Finasteride 5 MG Tab PO SCH (10:30)
[2018-04-23] MEDS: Acetaminophen 325 MG Tab PO SCH ×2 (12:45→22:42)
[2018-04-23] MEDS: Sodium Chloride 0.9% 10 ML Syringe FLUSH PRN ×2 (12:47→22:59)
[2018-04-23] MEDS: cefTRIAXone 1 GM Vial IVPUSH SCH (12:48)
[2018-04-23] MEDS: Bisacodyl 10 MG Supp RECTAL PRN (13:00)
[2018-04-23] MEDS: QUEtiapine 25 MG Tab PO SCH (20:41)
[2018-04-23] MEDS: atorvaSTATin 10 MG Tab PO SCH (20:41)
[2018-04-24] MEDS: OLANZapine 5 MG Tab PO PRN (00:20)
[2018-04-24] MEDS ORDERED: LORazepam 2 MG/ML Syringe IVPUSH ONE (01:44)
[2018-04-24] MEDS: Sodium Chloride 0.9% 10 ML Syringe FLUSH PRN (02:11)
[2018-04-24] MEDS: Doxazosin 2 MG Tab PO SCH (10:17)
[2018-04-24] MEDS: Finasteride 5 MG Tab PO SCH (10:18)
[2018-04-24] MEDS: Metoprolol Succinate 50 MG Tab.ER PO SCH (10:19)
[2018-04-24] MEDS: Tamsulosin 0.4 MG Cap.ER PO SCH (10:20)
[2018-04-24] MEDS: Ibuprofen 400 MG Tab PO SCH ×2 (10:21→17:19)
[2018-04-24] MEDS: Iron Polysaccharides Complex 150 MG Cap PO SCH (10:21)
[2018-04-24] MEDS: methylPREDNISolone 4 MG Tab 21 Tab/Dosepak PO SCH (10:23)
[2018-04-24] MEDS: K PHOS 500 MG PO SCH ×2 (10:25→21:17)
[2018-04-24] MEDS: Lidocaine 5% 700 MG Patch TOP SCH (10:26)
--- NOTE | 2018-04-24 10:59 | PCM.PN ---
- General Info Date of Service: 04/24/18 Admission Dx/Problem (Free Text): Admission Diagnosis/Problem Admission Diagnosis/Problem Back pain, dementia Subjective Update: The patient is an 87-year-old gentleman who has been living in an assisted living facility. The patient fell and hit the lower back. He has not been able to ambulate well since. He has a history of dementia. Was mildly confused on admission. Since the first night has been having increased delirium. He was noted to have significant urinary retention. Damon catheter was placed. Continued hematuria noted after the patient has been pulling on it overnight. We tried to remove Damon but continued to have significant retention and he is getting straight caths I saw and examined the patient today. He is still very confused. Only oriented to person, but calmer. He does not have any complaints. He does not complain of pain - Review of Systems General: Reports: Other (unable to obtain ROS due to dementia, confusion) - Patient Data Vitals - Most Recent: Last Vital Signs Temp 36.6 C 04/24/18 08:00 Pulse 72 04/24/18 10:19 Resp 24 H 04/24/18 08:00 BP 148/76 H 04/24/18 10:19 Pulse Ox 96 04/24/18 08:00 Weight - Most Recent: 74.888 kg I&O - Last 24 Hours: Intake & Output 04/23/18 04/24/18 04/24/18 22:59 06:59 14:59 Intake Total 300 140 Output Total 1000 750 Balance -700 -610 Med Orders - Current: Current Medications Acetaminophen (Tylenol) 650 mg PO Q6H PRN PRN Reason: Pain/Fever Acetaminophen (Tylenol) 650 mg PO BID@1300,2100 [facility] Atorvastatin Calcium (Lipitor) 10 mg PO BEDTIME [facility] Last Admin: 04/23/18 20:41 Dose: 10 mg Bisacodyl (Dulcolax) 10 mg RECTAL DAILY PRN PRN Reason: constipation Last Admin: 04/23/18 13:00 Dose: 10 mg Docusate Sodium (Colace) 100 mg PO BID PRN PRN Reason: Constipation Last Admin: 04/22/18 17:27 Dose: 100 mg Doxazosin Mesylate (Cardura) 4 mg PO DAILY [facility] Last Admin: 04/24/18 10:17 Dose: 4 mg Finasteride (Proscar) 5 mg PO DAILY [facility] Last Admin: 04/24/18 10:18 Dose: 5 mg Ibuprofen (Motrin) 400 mg PO Q8H PRN PRN Reason: pain moderate Ibuprofen (Motrin) 400 mg PO BIDMEALS [facility] Last Admin: 04/24/18 10:21 Dose: 400 mg Lidocaine (Lidoderm 5%) 700 mg TOP DAILY [facility] Last Admin: 04/24/18 10:26 Dose: 700 mg Magnesium Oxide (Magnesium Oxide) 250 mg PO DAILY [facility] Last Admin: 04/24/18 10:21 Dose: 250 mg Metoprolol Succinate (Toprol Xl) 100 mg PO DAILY [facility] Last Admin: 04/24/18 10:19 Dose: 100 mg Miscellaneous Information (Remove Patch) 1 ea TRDERM BEDTIME [facility] Last Admin: 04/23/18 20:53 Dose: Not Given Olanzapine (Zyprexa) 5 mg PO Q6H PRN PRN Reason: agitation, restlessness Last Admin: 04/24/18 00:20 Dose: 5 mg Olanzapine (Zyprexa) 5 mg IM Q6H PRN PRN Reason: agitation, reslessness Last Admin: 04/19/18 01:46 Dose: 5 mg Ondansetron HCl (Zofran Odt) 4 mg PO Q6H PRN PRN Reason: nausea, able to take PO Oxycodone HCl (Oxycodone) 5 mg PO Q4H PRN PRN Reason: Pain (severe) Last Admin: 04/23/18 02:44 Dose: 5 mg PtomK-Phos 500 (Mg Tablet) 0 each PO BID [facility] Last Admin: 04/24/18 10:25 Dose: 250 each Polysaccharide Iron Complex (Ferrex 150) 150 mg PO DAILY [facility] Last Admin: 04/24/18 10:21 Dose: 150 mg Quetiapine Fumarate (Seroquel) 25 mg PO BEDTIME [facility] Last Admin: 04/23/18 20:41 Dose: 25 mg Sodium Chloride (Saline Flush) 10 ml FLUSH ASDIRECTED PRN PRN Reason: Keep Vein Open Last Admin: 04/24/18 02:11 Dose: 10 ml Tamsulosin HCl (Flomax) 0.4 mg PO PCBREAKFAST [facility] Last Admin: 04/24/18 10:20 Dose: 0.4 mg Discontinued Medications Acetaminophen (Tylenol) 650 mg PO BID [facility] Last Admin: 04/18/18 08:40 Dose: 650 mg Acetaminophen (Tylenol) 650 mg PO 1300,2100 [facility] Last Admin: 04/23/18 22:42 Dose: 650 mg Ceftriaxone Sodium (Rocephin) 1 gm IVPUSH ONETIME ONE Stop: 04/17/18 12:23 Last Admin: 04/17/18 13:19 Dose: 1 gm Ceftriaxone Sodium (Rocephin) 1 gm IVPUSH Q24H [facility] Last Admin: 04/23/18 12:48 Dose: 1 gm Finasteride (Proscar) 5 mg PO DAILY [facility] Gabapentin (Neurontin) 200 mg PO BID [facility] Last Admin: 04/21/18 08:20 Dose: 200 mg Potassium Chloride/Sodium Chloride (Normal Saline With 20 Meq Kcl) 1,000 mls @ 75 mls/hr IV ASDIRECTED [facility] Last Admin: 04/23/18 06:37 Dose: 75 mls/hr Ibuprofen (Motrin) 600 mg PO Q8H PRN PRN Reason: Pain Ibuprofen (Motrin) 400 mg PO BID [facility] Last Admin: 04/18/18 08:37 Dose: 400 mg Lorazepam (Ativan) 1 mg IVPUSH ONETIME ONE Stop: 04/19/18 03:04 Last Admin: 04/19/18 03:13 Dose: 1 mg Lorazepam (Ativan) 1 mg IVPUSH ONETIME ONE Stop: 04/24/18 01:45 Last Admin: 04/24/18 02:10 Dose: 1 mg Methylprednisolone (Medrol) 4 mg PO TID [facility] Last Admin: 04/24/18 10:23 Dose: Not Given Morphine Sulfate (Morphine) 1 mg IVPUSH Q2H PRN PRN Reason: Pain (severe 7-10) Last Admin: 04/22/18 01:05 Dose: 1 mg Non-Formulary Medication (Apixaban [Eliquis]) 5 mg PO BID [facility] Non-Formulary Medication (Potassium [Potassium]) 250 mg PO BID [facility] PtomEliquis 5 Mg (Tab) 0 each PO BID [facility] Last Admin: 04/22/18 08:21 Dose: 5 each Potassium Chloride (Klor-Con 10) 20 meq PO ONETIME ONE Stop: 04/21/18 13:33 Last Admin: 04/21/18 14:22 Dose: 20 meq Zolpidem Tartrate (Ambien) 5 mg PO BEDTIME PRN PRN Reason: Sleep Last Admin: 04/23/18 23:29 Dose: 5 mg - Exam General: Other (confused) HEENT: Pupils Equal, Pupils Reactive Neck: Supple Lungs: Clear to Auscultation Cardiovascular: Regular Rate, Regular Rhythm GI/Abdominal Exam: Normal Bowel Sounds - Problem List Review Problem List Initiated/Reviewed/Updated: Yes - Plan Plan:: acute on chronic back pain Has a history of chronic T12 compression fracture, spinal stenosis Has been on Neurontin in the past CT of the lumbar spine showed chronic and degenerative changes Continue pain management Urine Inte Urinary tract infection Has had one week of IV antibiotics, completed treatment for UTI Atrial fibrillation Apixaban stopped because of hematuria Also hx of falls and dementia make the risks of anticoagulation much worse. Hypertension Continue BP medications History of atrial fibrillation Rate control with metoprolol Stopped Anticoagulation with apixaban (see above) Acute encephalopathy due to acute delirium due to history of dementia and hospital stay Try to minimize the narcotics, sedatives zyprexa as needed Urinary retention, Hematuria 2/2 pulled urinary catheter, traumatic hematuria. Continue straight cath for now May need Continuous bladder irrigation if clots continue Continue flomax and proscar DVT ppx SCDs No AC given hematuria
[2018-04-24] MEDS: Acetaminophen 325 MG Tab PO SCH ×2 (12:36→21:05)
[2018-04-24] MEDS: atorvaSTATin 10 MG Tab PO SCH (21:04)
[2018-04-24] MEDS: QUEtiapine 25 MG Tab PO SCH (21:04)
[2018-04-25] MEDS: Ibuprofen 400 MG Tab PO SCH ×2 (09:02→19:53)
[2018-04-25] MEDS: Iron Polysaccharides Complex 150 MG Cap PO SCH (09:06)
[2018-04-25] MEDS: Metoprolol Succinate 50 MG Tab.ER PO SCH (09:07)
[2018-04-25] MEDS: Finasteride 5 MG Tab PO SCH (09:07)
[2018-04-25] MEDS: Tamsulosin 0.4 MG Cap.ER PO SCH (09:07)
[2018-04-25] MEDS: Doxazosin 2 MG Tab PO SCH (09:15)
[2018-04-25] MEDS: Lidocaine 5% 700 MG Patch TOP SCH (09:16)
--- NOTE | 2018-04-25 09:24 | PCM.PN ---
- General Info Date of Service: 04/25/18 Admission Dx/Problem (Free Text): Admission Diagnosis/Problem Admission Diagnosis/Problem Back pain, dementia Subjective Update: The patient is an 87-year-old gentleman who has been living in an assisted living facility. The patient fell and hit the lower back. He has not been able to ambulate well since. He has a history of dementia. Was mildly confused on admission. Since the first night has been having increased delirium. He was noted to have significant urinary retention. Damon catheter was placed. Continued hematuria noted after the patient has been pulling on it overnight. We tried to remove Damon but continued to have significant retention and he is getting straight caths I saw and examined the patient today. He is still very confused. Only oriented to person, but calmer. He does not have any complaints. He does not complain of pain - Review of Systems General: Reports: Other (unable to obtain ROS due to dementia) - Patient Data Vitals - Most Recent: Last Vital Signs Temp 36.5 C 04/25/18 05:01 Pulse 74 04/25/18 09:07 Resp 11 L 04/25/18 07:27 BP 163/62 H 04/25/18 09:15 Pulse Ox 93 L 04/25/18 07:27 Weight - Most Recent: 74.888 kg I&O - Last 24 Hours: Intake & Output 04/24/18 04/25/18 04/25/18 22:59 06:59 14:59 Intake Total 100 Output Total 600 500 Balance -500 -500 Med Orders - Current: Current Medications Acetaminophen (Tylenol) 650 mg PO Q6H PRN PRN Reason: Pain/Fever Acetaminophen (Tylenol) 650 mg PO BID@1300,2100 [facility] Last Admin: 04/24/18 21:05 Dose: 650 mg Atorvastatin Calcium (Lipitor) 10 mg PO BEDTIME [facility] Last Admin: 04/24/18 21:04 Dose: 10 mg Bisacodyl (Dulcolax) 10 mg RECTAL DAILY PRN PRN Reason: constipation Last Admin: 04/23/18 13:00 Dose: 10 mg Docusate Sodium (Colace) 100 mg PO BID PRN PRN Reason: Constipation Last Admin: 04/22/18 17:27 Dose: 100 mg Doxazosin Mesylate (Cardura) 4 mg PO DAILY [facility] Last Admin: 04/25/18 09:15 Dose: 4 mg Finasteride (Proscar) 5 mg PO DAILY [facility] Last Admin: 04/25/18 09:07 Dose: 5 mg Ibuprofen (Motrin) 400 mg PO Q8H PRN PRN Reason: pain moderate Ibuprofen (Motrin) 400 mg PO BIDMEALS [facility] Last Admin: 04/25/18 09:02 Dose: 400 mg Lidocaine (Lidoderm 5%) 700 mg TOP DAILY [facility] Last Admin: 04/25/18 09:16 Dose: 700 mg Magnesium Oxide (Magnesium Oxide) 250 mg PO DAILY [facility] Last Admin: 04/25/18 09:06 Dose: 250 mg Metoprolol Succinate (Toprol Xl) 100 mg PO DAILY [facility] Last Admin: 04/25/18 09:07 Dose: 100 mg Miscellaneous Information (Remove Patch) 1 ea TRDERM BEDTIME [facility] Last Admin: 04/24/18 21:12 Dose: 1 ea Olanzapine (Zyprexa) 5 mg PO Q6H PRN PRN Reason: agitation, restlessness Last Admin: 04/24/18 00:20 Dose: 5 mg Olanzapine (Zyprexa) 5 mg IM Q6H PRN PRN Reason: agitation, reslessness Last Admin: 04/19/18 01:46 Dose: 5 mg Ondansetron HCl (Zofran Odt) 4 mg PO Q6H PRN PRN Reason: nausea, able to take PO PtomK-Phos 500 (Mg Tablet) 0 each PO BID [facility] Last Admin: 04/24/18 21:17 Dose: 250 each Polysaccharide Iron Complex (Ferrex 150) 150 mg PO DAILY [facility] Last Admin: 04/25/18 09:06 Dose: 150 mg Quetiapine Fumarate (Seroquel) 25 mg PO BEDTIME [facility] Last Admin: 04/24/18 21:04 Dose: 25 mg Sodium Chloride (Saline Flush) 10 ml FLUSH ASDIRECTED PRN PRN Reason: Keep Vein Open Last Admin: 04/24/18 02:11 Dose: 10 ml Tamsulosin HCl (Flomax) 0.4 mg PO PCBREAKFAST [facility] Last Admin: 04/25/18 09:07 Dose: 0.4 mg Discontinued Medications Acetaminophen (Tylenol) 650 mg PO BID [facility] Last Admin: 04/18/18 08:40 Dose: 650 mg Acetaminophen (Tylenol) 650 mg PO 1300,2100 [facility] Last Admin: 04/23/18 22:42 Dose: 650 mg Ceftriaxone Sodium (Rocephin) 1 gm IVPUSH ONETIME ONE Stop: 04/17/18 12:23 Last Admin: 04/17/18 13:19 Dose: 1 gm Ceftriaxone Sodium (Rocephin) 1 gm IVPUSH Q24H [facility] Last Admin: 04/23/18 12:48 Dose: 1 gm Finasteride (Proscar) 5 mg PO DAILY [facility] Gabapentin (Neurontin) 200 mg PO BID [facility] Last Admin: 04/21/18 08:20 Dose: 200 mg Potassium Chloride/Sodium Chloride (Normal Saline With 20 Meq Kcl) 1,000 mls @ 75 mls/hr IV ASDIRECTED [facility] Last Admin: 04/23/18 06:37 Dose: 75 mls/hr Ibuprofen (Motrin) 600 mg PO Q8H PRN PRN Reason: Pain Ibuprofen (Motrin) 400 mg PO BID [facility] Last Admin: 04/18/18 08:37 Dose: 400 mg Lorazepam (Ativan) 1 mg IVPUSH ONETIME ONE Stop: 04/19/18 03:04 Last Admin: 04/19/18 03:13 Dose: 1 mg Lorazepam (Ativan) 1 mg IVPUSH ONETIME ONE Stop: 04/24/18 01:45 Last Admin: 04/24/18 02:10 Dose: 1 mg Methylprednisolone (Medrol) 4 mg PO TID [facility] Last Admin: 04/24/18 10:23 Dose: Not Given Morphine Sulfate (Morphine) 1 mg IVPUSH Q2H PRN PRN Reason: Pain (severe 7-10) Last Admin: 04/22/18 01:05 Dose: 1 mg Non-Formulary Medication (Apixaban [Eliquis]) 5 mg PO BID [facility] Non-Formulary Medication (Potassium [Potassium]) 250 mg PO BID [facility] Oxycodone HCl (Oxycodone) 5 mg PO Q4H PRN PRN Reason: Pain (severe) Last Admin: 04/23/18 02:44 Dose: 5 mg PtomEliquis 5 Mg (Tab) 0 each PO BID [facility] Last Admin: 04/22/18 08:21 Dose: 5 each Potassium Chloride (Klor-Con 10) 20 meq PO ONETIME ONE Stop: 04/21/18 13:33 Last Admin: 04/21/18 14:22 Dose: 20 meq Zolpidem Tartrate (Ambien) 5 mg PO BEDTIME PRN PRN Reason: Sleep Last Admin: 04/23/18 23:29 Dose: 5 mg - Exam General: Alert, Other (confused) HEENT: Pupils Equal Neck: Supple Lungs: Clear to Auscultation Cardiovascular: Regular Rate, Regular Rhythm GI/Abdominal Exam: Normal Bowel Sounds - Problem List Review Problem List Initiated/Reviewed/Updated: Yes - Plan Plan:: acute on chronic back pain Has a history of chronic T12 compression fracture, spinal stenosis Has been on Neurontin in the past CT of the lumbar spine showed chronic and degenerative changes Continue pain management Urinary tract infection Has had one week of IV antibiotics, completed treatment for UTI Atrial fibrillation Apixaban stopped because of hematuria Also hx of falls and dementia make the risks of anticoagulation much worse. Hypertension Continue BP medications History of atrial fibrillation Rate control with metoprolol Stopped Anticoagulation with apixaban (see above) Acute encephalopathy due to acute delirium due to history of dementia and hospital stay Try to minimize the narcotics, sedatives zyprexa as needed Urinary retention, Hematuria; improved. 2/2 pulled urinary catheter, traumatic hematuria. Continue straight cath for now May need Continuous bladder irrigation if clots continue Continue flomax and proscar DVT ppx SCDs No AC given hematuria
[2018-04-25] MEDS: K PHOS 500 MG PO SCH ×2 (11:07→21:31)
[2018-04-25] MEDS: Acetaminophen 325 MG Tab PO SCH ×2 (14:14→20:57)
[2018-04-25] MEDS ORDERED: Haloperidol Lactate 5 MG/ML SDV IVPUSH ONE (17:32)
[2018-04-25] MEDS: Sodium Chloride 0.9% 10 ML Syringe FLUSH PRN (17:58)
[2018-04-25] MEDS: atorvaSTATin 10 MG Tab PO SCH (20:56)
[2018-04-25] MEDS: QUEtiapine 25 MG Tab PO SCH (20:56)
--- NOTE | 2018-04-26 10:14 | PCM.PN ---
- General Info Date of Service: 04/26/18 Admission Dx/Problem (Free Text): Admission Diagnosis/Problem Admission Diagnosis/Problem Back pain, dementia Subjective Update: The patient is an 87-year-old gentleman who has been living in an assisted living facility. The patient fell and hit the lower back. He has not been able to ambulate well since. He has a history of dementia. Was mildly confused on admission. Since the first night has been having increased delirium. He was noted to have significant urinary retention. Damon catheter was placed. Continued hematuria noted after the patient has been pulling on it overnight. We tried to remove Damon but continued to have significant retention and he is getting straight caths I saw and examined the patient today. He had an episode of agitation last night, was given IV Haldol. He has been sleeping since meds were given last night. - Review of Systems General: Reports: Other (Unable to obtain review of systems as patient is sleeping.) - Patient Data Vitals - Most Recent: Last Vital Signs Temp 36.4 C 04/26/18 08:05 Pulse 72 04/26/18 08:05 Resp 20 04/26/18 08:05 BP 141/76 H 04/26/18 08:05 Pulse Ox 95 04/26/18 08:05 Weight - Most Recent: 74.888 kg I&O - Last 24 Hours: Intake & Output 04/25/18 04/26/18 04/26/18 22:59 06:59 14:59 Intake Total 400 Output Total 315 Balance 400 -315 Med Orders - Current: Current Medications Acetaminophen (Tylenol) 650 mg PO Q6H PRN PRN Reason: Pain/Fever Acetaminophen (Tylenol) 650 mg PO BID@1300,2100 [facility] Last Admin: 04/25/18 20:57 Dose: 650 mg Atorvastatin Calcium (Lipitor) 10 mg PO BEDTIME [facility] Last Admin: 04/25/18 20:56 Dose: 10 mg Bisacodyl (Dulcolax) 10 mg RECTAL DAILY PRN PRN Reason: constipation Last Admin: 04/23/18 13:00 Dose: 10 mg Docusate Sodium (Colace) 100 mg PO BID PRN PRN Reason: Constipation Last Admin: 04/22/18 17:27 Dose: 100 mg Doxazosin Mesylate (Cardura) 4 mg PO DAILY [facility] Last Admin: 04/25/18 09:15 Dose: 4 mg Finasteride (Proscar) 5 mg PO DAILY [facility] Last Admin: 04/25/18 09:07 Dose: 5 mg Ibuprofen (Motrin) 400 mg PO Q8H PRN PRN Reason: pain moderate Ibuprofen (Motrin) 400 mg PO BIDMEALS [facility] Last Admin: 04/25/18 19:53 Dose: 400 mg Lidocaine (Lidoderm 5%) 700 mg TOP DAILY [facility] Last Admin: 04/25/18 09:16 Dose: 700 mg Magnesium Oxide (Magnesium Oxide) 250 mg PO DAILY [facility] Last Admin: 04/25/18 09:06 Dose: 250 mg Metoprolol Succinate (Toprol Xl) 100 mg PO DAILY [facility] Last Admin: 04/25/18 09:07 Dose: 100 mg Miscellaneous Information (Remove Patch) 1 ea TRDERM BEDTIME [facility] Last Admin: 04/25/18 21:34 Dose: 1 ea Olanzapine (Zyprexa) 5 mg PO Q6H PRN PRN Reason: agitation, restlessness Last Admin: 04/24/18 00:20 Dose: 5 mg Olanzapine (Zyprexa) 5 mg IM Q6H PRN PRN Reason: agitation, reslessness Last Admin: 04/19/18 01:46 Dose: 5 mg Ondansetron HCl (Zofran Odt) 4 mg PO Q6H PRN PRN Reason: nausea, able to take PO PtomK-Phos 500 (Mg Tablet) 0 each PO BID [facility] Last Admin: 04/25/18 21:31 Dose: Not Given Polysaccharide Iron Complex (Ferrex 150) 150 mg PO DAILY [facility] Last Admin: 04/25/18 09:06 Dose: 150 mg Quetiapine Fumarate (Seroquel) 25 mg PO BEDTIME [facility] Last Admin: 04/25/18 20:56 Dose: 25 mg Sodium Chloride (Saline Flush) 10 ml FLUSH ASDIRECTED PRN PRN Reason: Keep Vein Open Last Admin: 04/25/18 17:58 Dose: 10 ml Tamsulosin HCl (Flomax) 0.4 mg PO PCBREAKFAST [facility] Last Admin: 04/25/18 09:07 Dose: 0.4 mg Discontinued Medications Acetaminophen (Tylenol) 650 mg PO BID [facility] Last Admin: 04/18/18 08:40 Dose: 650 mg Acetaminophen (Tylenol) 650 mg PO 1300,2100 [facility] Last Admin: 04/23/18 22:42 Dose: 650 mg Ceftriaxone Sodium (Rocephin) 1 gm IVPUSH ONETIME ONE Stop: 04/17/18 12:23 Last Admin: 04/17/18 13:19 Dose: 1 gm Ceftriaxone Sodium (Rocephin) 1 gm IVPUSH Q24H [facility] Last Admin: 04/23/18 12:48 Dose: 1 gm Finasteride (Proscar) 5 mg PO DAILY [facility] Gabapentin (Neurontin) 200 mg PO BID [facility] Last Admin: 04/21/18 08:20 Dose: 200 mg Haloperidol Lactate (Haldol) 2 mg IVPUSH ONETIME ONE Stop: 04/25/18 17:33 Last Admin: 04/25/18 17:57 Dose: 2 mg Potassium Chloride/Sodium Chloride (Normal Saline With 20 Meq Kcl) 1,000 mls @ 75 mls/hr IV ASDIRECTED [facility] Last Admin: 04/23/18 06:37 Dose: 75 mls/hr Ibuprofen (Motrin) 600 mg PO Q8H PRN PRN Reason: Pain Ibuprofen (Motrin) 400 mg PO BID [facility] Last Admin: 04/18/18 08:37 Dose: 400 mg Lorazepam (Ativan) 1 mg IVPUSH ONETIME ONE Stop: 04/19/18 03:04 Last Admin: 04/19/18 03:13 Dose: 1 mg Lorazepam (Ativan) 1 mg IVPUSH ONETIME ONE Stop: 04/24/18 01:45 Last Admin: 04/24/18 02:10 Dose: 1 mg Methylprednisolone (Medrol) 4 mg PO TID [facility] Last Admin: 04/24/18 10:23 Dose: Not Given Morphine Sulfate (Morphine) 1 mg IVPUSH Q2H PRN PRN Reason: Pain (severe 7-10) Last Admin: 04/22/18 01:05 Dose: 1 mg Non-Formulary Medication (Apixaban [Eliquis]) 5 mg PO BID [facility] Non-Formulary Medication (Potassium [Potassium]) 250 mg PO BID [facility] Oxycodone HCl (Oxycodone) 5 mg PO Q4H PRN PRN Reason: Pain (severe) Last Admin: 04/23/18 02:44 Dose: 5 mg PtomEliquis 5 Mg (Tab) 0 each PO BID [facility] Last Admin: 04/22/18 08:21 Dose: 5 each Potassium Chloride (Klor-Con 10) 20 meq PO ONETIME ONE Stop: 04/21/18 13:33 Last Admin: 04/21/18 14:22 Dose: 20 meq Zolpidem Tartrate (Ambien) 5 mg PO BEDTIME PRN PRN Reason: Sleep Last Admin: 04/23/18 23:29 Dose: 5 mg - Exam General: Other (Patient sleeping) HEENT: Pupils Equal Neck: Supple Lungs: Clear to Auscultation Cardiovascular: Regular Rate, Regular Rhythm GI/Abdominal Exam: Normal Bowel Sounds - Problem List Review Problem List Initiated/Reviewed/Updated: Yes - My Orders Last 24 Hours: My Active Orders 04/25/18 17:30 Initiate Restraint Protocol [RC] BID 04/25/18 17:31 Restraint Initiate Non-VIOL/Non-SD [OM.PC] Routine 04/25/18 17:45 Restraint Eval Need to Continue - 24 Hrs [OM.PC] Daily 04/26/18 17:45 Restraint Eval Need to Continue - 24 Hrs [OM.PC] Daily - Plan Plan:: acute on chronic back pain Has a history of chronic T12 compression fracture, spinal stenosis Has been on Neurontin in the past CT of the lumbar spine showed chronic and degenerative changes Continue pain management Urinary tract infection Has had one week of IV antibiotics, completed treatment for UTI Atrial fibrillation Apixaban stopped because of hematuria Also hx of falls and dementia make the risks of anticoagulation much worse. Hypertension Continue BP medications History of atrial fibrillation Rate control with metoprolol Stopped Anticoagulation with apixaban (see above) Acute encephalopathy due to acute delirium due to history of dementia and hospital stay Try to minimize the narcotics, sedatives zyprexa as needed Haldol as needed Urinary retention, Hematuria; improved. 2/2 pulled urinary catheter, traumatic hematuria. Continue straight cath for now May need Continuous bladder irrigation if clots continue Continue flomax and proscar DVT ppx SCDs No AC given hematuria
[2018-04-26] MEDS: Lidocaine 5% 700 MG Patch TOP SCH (10:24)
[2018-04-26] MEDS: Ibuprofen 400 MG Tab PO SCH ×2 (10:25→17:12)
[2018-04-26] MEDS: Iron Polysaccharides Complex 150 MG Cap PO SCH (10:35)
[2018-04-26] MEDS: Doxazosin 2 MG Tab PO SCH (10:35)
[2018-04-26] MEDS: Finasteride 5 MG Tab PO SCH (10:35)
[2018-04-26] MEDS: Metoprolol Succinate 50 MG Tab.ER PO SCH (10:36)
[2018-04-26] MEDS: Tamsulosin 0.4 MG Cap.ER PO SCH (10:36)
[2018-04-26] MEDS: K PHOS 500 MG PO SCH ×2 (10:40→21:40)
[2018-04-26] MEDS: Acetaminophen 325 MG Tab PO SCH (13:14)
[2018-04-26] MEDS: OLANZapine 5 MG Tab PO PRN (19:41)
[2018-04-26] MEDS: Acetaminophen 325 MG Tab PO PRN (19:41)
[2018-04-26] MEDS: atorvaSTATin 10 MG Tab PO SCH (20:15)
[2018-04-26] MEDS: Docusate Sodium 100 MG Cap PO PRN (20:15)
[2018-04-26] MEDS: QUEtiapine 25 MG Tab PO SCH (20:16)
[2018-04-27] MEDS: Acetaminophen 325 MG Tab PO SCH ×3 (00:44→21:16)
[2018-04-27] MEDS: OLANZapine 5 MG Tab PO PRN ×2 (01:43→19:41)
[2018-04-27] MEDS: Acetaminophen 325 MG Tab PO PRN ×3 (01:43→19:41)
[2018-04-27] MEDS: Lidocaine 5% 700 MG Patch TOP SCH ×2 (08:15→11:21)
[2018-04-27] MEDS: Doxazosin 2 MG Tab PO SCH (08:16)
[2018-04-27] MEDS: Iron Polysaccharides Complex 150 MG Cap PO SCH (08:18)
[2018-04-27] MEDS: Finasteride 5 MG Tab PO SCH (08:18)
[2018-04-27] MEDS: Metoprolol Succinate 50 MG Tab.ER PO SCH (08:18)
[2018-04-27] MEDS: K PHOS 500 MG PO SCH (08:19)
[2018-04-27] MEDS ORDERED: Ibuprofen 200 MG Tab PO PRN (08:27)
[2018-04-27] MEDS ORDERED: Ibuprofen 200 MG Tab PO ONE (08:30)
[2018-04-27] MEDS: Tamsulosin 0.4 MG Cap.ER PO SCH (08:31)
--- NOTE | 2018-04-27 10:56 | PCM.PN ---
- General Info Date of Service: 04/27/18 Admission Dx/Problem (Free Text): Admission Diagnosis/Problem Admission Diagnosis/Problem Back pain, dementia Subjective Update: The patient is an 87-year-old gentleman who has been living in an assisted living facility. The patient fell and hit the lower back. He has not been able to ambulate well since. He has a history of dementia. Was mildly confused on admission. Since the first night has been having increased delirium. He was noted to have significant urinary retention. Damon catheter was placed. Continued hematuria noted after the patient has been pulling on it overnight. We tried to remove Damon but continued to have significant retention and he is getting straight caths I saw and examined the patient today. He has no new complaints Awaiting transfer to the [place] on Saturday Son and grand daughter at bedside, discussed with them - Review of Systems General: Reports: Other (ROS limited by dementia) - Patient Data Vitals - Most Recent: Last Vital Signs Temp 36.6 C 04/27/18 07:58 Pulse 72 04/27/18 08:18 Resp 20 04/27/18 07:58 BP 164/80 H 04/27/18 08:18 Pulse Ox 95 04/27/18 07:58 Weight - Most Recent: 74.888 kg I&O - Last 24 Hours: Intake & Output 04/26/18 04/27/18 04/27/18 22:59 06:59 14:59 Intake Total 908 100 Output Total 675 Balance 908 -675 100 Med Orders - Current: Current Medications Acetaminophen (Tylenol) 650 mg PO Q6H PRN PRN Reason: Pain/Fever Last Admin: 04/27/18 08:24 Dose: 650 mg Acetaminophen (Tylenol) 650 mg PO BID@1300,2100 [facility] Last Admin: 04/27/18 00:44 Dose: Not Given Atorvastatin Calcium (Lipitor) 10 mg PO BEDTIME [facility] Last Admin: 04/26/18 20:15 Dose: 10 mg Bisacodyl (Dulcolax) 10 mg RECTAL DAILY PRN PRN Reason: constipation Last Admin: 04/23/18 13:00 Dose: 10 mg Docusate Sodium (Colace) 100 mg PO BID PRN PRN Reason: Constipation Last Admin: 04/26/18 20:15 Dose: 100 mg Doxazosin Mesylate (Cardura) 4 mg PO DAILY [facility] Last Admin: 04/27/18 08:16 Dose: 4 mg Finasteride (Proscar) 5 mg PO DAILY [facility] Last Admin: 04/27/18 08:18 Dose: 5 mg Ibuprofen (Motrin) 400 mg PO Q8H PRN PRN Reason: pain moderate Ibuprofen (Motrin) 400 mg PO BIDMEALS [facility] Lidocaine (Lidoderm 5%) 700 mg TOP DAILY [facility] Last Admin: 04/27/18 08:15 Dose: 700 mg Magnesium Oxide (Magnesium Oxide) 250 mg PO DAILY [facility] Last Admin: 04/27/18 08:16 Dose: 250 mg Metoprolol Succinate (Toprol Xl) 100 mg PO DAILY [facility] Last Admin: 04/27/18 08:18 Dose: 100 mg Miscellaneous Information (Remove Patch) 1 ea TRDERM BEDTIME [facility] Last Admin: 04/26/18 21:40 Dose: Not Given Olanzapine (Zyprexa) 5 mg PO Q6H PRN PRN Reason: agitation, restlessness Last Admin: 04/27/18 01:43 Dose: 5 mg Olanzapine (Zyprexa) 5 mg IM Q6H PRN PRN Reason: agitation, reslessness Last Admin: 04/19/18 01:46 Dose: 5 mg Ondansetron HCl (Zofran Odt) 4 mg PO Q6H PRN PRN Reason: nausea, able to take PO Polysaccharide Iron Complex (Ferrex 150) 150 mg PO DAILY [facility] Last Admin: 04/27/18 08:18 Dose: 150 mg Quetiapine Fumarate (Seroquel) 25 mg PO BEDTIME [facility] Last Admin: 04/26/18 20:16 Dose: 25 mg Sodium Chloride (Saline Flush) 10 ml FLUSH ASDIRECTED PRN PRN Reason: Keep Vein Open Last Admin: 04/25/18 17:58 Dose: 10 ml Tamsulosin HCl (Flomax) 0.4 mg PO PCBREAKFAST [facility] Last Admin: 04/27/18 08:31 Dose: 0.4 mg Discontinued Medications Acetaminophen (Tylenol) 650 mg PO BID [facility] Last Admin: 04/18/18 08:40 Dose: 650 mg Acetaminophen (Tylenol) 650 mg PO 1300,2100 [facility] Last Admin: 04/23/18 22:42 Dose: 650 mg Ceftriaxone Sodium (Rocephin) 1 gm IVPUSH ONETIME ONE Stop: 04/17/18 12:23 Last Admin: 04/17/18 13:19 Dose: 1 gm Ceftriaxone Sodium (Rocephin) 1 gm IVPUSH Q24H [facility] Last Admin: 04/23/18 12:48 Dose: 1 gm Finasteride (Proscar) 5 mg PO DAILY [facility] Gabapentin (Neurontin) 200 mg PO BID [facility] Last Admin: 04/21/18 08:20 Dose: 200 mg Haloperidol Lactate (Haldol) 2 mg IVPUSH ONETIME ONE Stop: 04/25/18 17:33 Last Admin: 04/25/18 17:57 Dose: 2 mg Potassium Chloride/Sodium Chloride (Normal Saline With 20 Meq Kcl) 1,000 mls @ 75 mls/hr IV ASDIRECTED [facility] Last Admin: 04/23/18 06:37 Dose: 75 mls/hr Ibuprofen (Motrin) 600 mg PO Q8H PRN PRN Reason: Pain Ibuprofen (Motrin) 400 mg PO Q8H PRN PRN Reason: pain moderate Ibuprofen (Motrin) 400 mg PO BID [facility] Last Admin: 04/18/18 08:37 Dose: [facility] Admin: 04/26/18 17:12 Dose: 400 mg Ibuprofen (Motrin) 400 mg PO ONETIME ONE Stop: 04/27/18 08:31 Last Admin: 04/27/18 08:33 Dose: 400 mg Lorazepam (Ativan) 1 mg IVPUSH ONETIME ONE Stop: 04/19/18 03:04 Last Admin: 04/19/18 03:13 Dose: 1 mg Lorazepam (Ativan) 1 mg IVPUSH ONETIME ONE Stop: 04/24/18 01:45 Last Admin: 04/24/18 02:10 Dose: 1 mg Methylprednisolone (Medrol) 4 mg PO TID [facility] Last Admin: 04/24/18 10:23 Dose: Not Given Morphine Sulfate (Morphine) 1 mg IVPUSH Q2H PRN PRN Reason: Pain (severe 7-10) Last Admin: 04/22/18 01:05 Dose: 1 mg Non-Formulary Medication (Apixaban [Eliquis]) 5 mg PO BID [facility] Non-Formulary Medication (Potassium [Potassium]) 250 mg PO BID [facility] Oxycodone HCl (Oxycodone) 5 mg PO Q4H PRN PRN Reason: Pain (severe) Last Admin: 04/23/18 02:44 Dose: 5 mg PtomEliquis 5 Mg (Tab) 0 each PO BID [facility] Last Admin: 04/22/18 08:21 Dose: 5 each PtomK-Phos 500 (Mg Tablet) 0 each PO BID [facility] Last Admin: 04/27/18 08:19 Dose: Not Given Potassium Chloride (Klor-Con 10) 20 meq PO ONETIME ONE Stop: 04/21/18 13:33 Last Admin: 04/21/18 14:22 Dose: 20 meq Zolpidem Tartrate (Ambien) 5 mg PO BEDTIME PRN PRN Reason: Sleep Last Admin: 04/23/18 23:29 Dose: 5 mg - Exam General: Alert HEENT: Pupils Equal Neck: Supple Lungs: Clear to Auscultation, Normal Respiratory Effort Cardiovascular: Regular Rate, Regular Rhythm GI/Abdominal Exam: Normal Bowel Sounds - Problem List Review Problem List Initiated/Reviewed/Updated: Yes - My Orders Last 24 Hours: My Active Orders 04/26/18 17:45 Restraint Eval Need to Continue - 24 Hrs [OM.PC] Daily - Plan Plan:: acute on chronic back pain Has a history of chronic T12 compression fracture, spinal stenosis Has been on Neurontin in the past CT of the lumbar spine showed chronic and degenerative changes Continue pain management Urinary tract infection Has had one week of IV antibiotics, completed treatment for UTI Atrial fibrillation Apixaban stopped because of hematuria Also hx of falls and dementia make the risks of anticoagulation much worse. Hypertension Continue BP medications History of atrial fibrillation Rate control with metoprolol Stopped Anticoagulation with apixaban (see above) Acute encephalopathy due to acute delirium due to history of dementia and hospital stay Try to minimize the narcotics, sedatives zyprexa as needed Haldol as needed Urinary retention, Hematuria; improved. 2/2 pulled urinary catheter, traumatic hematuria. Continue straight cath for now May need Continuous bladder irrigation if clots continue Continue flomax and proscar DVT ppx SCDs No AC given hematuria
[2018-04-27] MEDS: Ibuprofen 400 MG Tab PO SCH (12:32)
[2018-04-27] MEDS: Ibuprofen 200 MG Tab PO SCH (18:23)
[2018-04-27] MEDS: QUEtiapine 25 MG Tab PO SCH (20:47)
[2018-04-27] MEDS: atorvaSTATin 10 MG Tab PO SCH (20:47)
[2018-04-27] MEDS: Remove Patch*LIDODERM TRDERM SCH (20:48)
[2018-04-27] MEDS: OLANZapine 10 MG Vial IM PRN (22:17)
[2018-04-28] MEDS: OLANZapine 10 MG Vial IM PRN (04:16)
[2018-04-28] MEDS: Lidocaine 5% 700 MG Patch TOP SCH ×2 (09:16→09:17)
[2018-04-28] MEDS: Finasteride 5 MG Tab PO SCH (09:18)
[2018-04-28] MEDS: Tamsulosin 0.4 MG Cap.ER PO SCH (09:18)
[2018-04-28] MEDS: Doxazosin 2 MG Tab PO SCH (09:20)
[2018-04-28] MEDS: Iron Polysaccharides Complex 150 MG Cap PO SCH (09:21)
[2018-04-28] MEDS: Metoprolol Succinate 50 MG Tab.ER PO SCH (09:21)
[2018-04-28] MEDS: Ibuprofen 200 MG Tab PO SCH ×2 (09:39→17:42)
--- NOTE | 2018-04-28 10:03 | PCM.PN ---
- General Info Date of Service: 04/28/18 Admission Dx/Problem (Free Text): Admission Diagnosis/Problem Admission Diagnosis/Problem Back pain, dementia Subjective Update: I saw and examined the patient today. The patient had a fall yesterday while ambulating with assistance to the bathroom. He sustained a bruise/minor skin laceration on his left hand. This was dressed with Steri-Strips. He has no new complaints [facility]waiting transfer to the [facility] on [facility] - Review of Systems General: Reports: Other (Unable to obtain review of systems due to dementia.) - Patient Data Vitals - Most Recent: Last Vital Signs Temp 36.3 C 04/28/18 07:55 Pulse 73 04/28/18 09:21 Resp 20 04/28/18 07:55 BP 127/63 04/28/18 09:21 Pulse Ox 93 L 04/28/18 07:55 Weight - Most Recent: 74.888 kg I&O - Last 24 Hours: Intake & Output 04/27/18 04/28/18 04/28/18 22:59 06:59 14:59 Intake Total 150 Output Total 500 940 Balance -350 -940 Med Orders - Current: Current Medications Acetaminophen (Tylenol) 650 mg PO Q6H PRN PRN Reason: Pain/Fever Last Admin: 04/27/18 19:41 Dose: 650 mg Acetaminophen (Tylenol) 650 mg PO BID@1300,2100 [facility] Last Admin: 04/27/18 21:16 Dose: Not Given Atorvastatin Calcium (Lipitor) 10 mg PO BEDTIME [facility] Last Admin: 04/27/18 20:47 Dose: 10 mg Bisacodyl (Dulcolax) 10 mg RECTAL DAILY PRN PRN Reason: constipation Last Admin: 04/23/18 13:00 Dose: 10 mg Docusate Sodium (Colace) 100 mg PO BID PRN PRN Reason: Constipation Last Admin: 04/26/18 20:15 Dose: 100 mg Doxazosin Mesylate (Cardura) 4 mg PO DAILY [facility] Last Admin: 04/28/18 09:20 Dose: 4 mg Finasteride (Proscar) 5 mg PO DAILY [facility] Last Admin: 04/28/18 09:18 Dose: 5 mg Ibuprofen (Motrin) 400 mg PO Q8H PRN PRN Reason: pain moderate Last Admin: 04/28/18 02:14 Dose: 400 mg Ibuprofen (Motrin) 400 mg PO BIDMEALS [facility]CLUD[facility] Last Admin: 04/28/18 09:39 Dose: 400 mg Lidocaine (Lidoderm 5%) 700 mg TOP DAILY [facility] Last Admin: 04/28/18 09:16 Dose: 700 mg Lidocaine (Lidoderm 5%) 700 mg TOP DAILY [facility] Last Admin: 04/28/18 09:17 Dose: 700 mg Magnesium Oxide (Magnesium Oxide) 250 mg PO DAILY [facility] Last Admin: 04/28/18 09:18 Dose: 250 mg Metoprolol Succinate (Toprol Xl) 100 mg PO DAILY [facility] Last Admin: 04/28/18 09:21 Dose: 100 mg Miscellaneous Information (Remove Patch) 1 ea TRDERM BEDTIME COUNT [facility]CLUDES [facility] Last Admin: 04/27/18 20:47 Dose: Not Given Miscellaneous Information (Remove Patch) 1 ea TRDERM Q24H COUNT [facility]CLUDES [facility] Last Admin: 04/27/18 20:48 Dose: Not Given Olanzapine (Zyprexa) 5 mg PO Q6H PRN PRN Reason: agitation, restlessness Last Admin: 04/27/18 19:41 Dose: 5 mg Olanzapine (Zyprexa) 5 mg IM Q6H PRN PRN Reason: agitation, reslessness Last Admin: 04/28/18 04:16 Dose: 5 mg Ondansetron HCl (Zofran Odt) 4 mg PO Q6H PRN PRN Reason: nausea, able to take PO Polysaccharide Iron Complex (Ferrex 150) 150 mg PO DAILY [facility] Last Admin: 04/28/18 09:21 Dose: 150 mg Quetiapine Fumarate (Seroquel) 25 mg PO BEDTIME [facility] Last Admin: 04/27/18 20:47 Dose: 25 mg Sodium Chloride (Saline Flush) 10 ml FLUSH ASDIRECTED PRN PRN Reason: Keep Vein Open Last Admin: 04/25/18 17:58 Dose: 10 ml Tamsulosin HCl (Flomax) 0.4 mg PO PCBREAKFAST COUNT [facility]CLUD[facility] Last Admin: 04/28/18 09:18 Dose: 0.4 mg Discontinued Medications Acetaminophen (Tylenol) 650 mg PO BID [facility] Last Admin: 04/18/18 08:40 Dose: 650 mg Acetaminophen (Tylenol) 650 mg PO 1300,2100 [facility] Last Admin: 04/23/18 22:42 Dose: 650 mg Ceftriaxone Sodium (Rocephin) 1 gm IVPUSH ONETIME ONE Stop: 04/17/18 12:23 Last Admin: 04/17/18 13:19 Dose: 1 gm Ceftriaxone Sodium (Rocephin) 1 gm IVPUSH Q24H [facility] Last Admin: 04/23/18 12:48 Dose: 1 gm Finasteride (Proscar) 5 mg PO DAILY [facility] Gabapentin (Neurontin) 200 mg PO BID COUNT [facility] Last Admin: 04/21/18 08:20 Dose: 200 mg Haloperidol Lactate (Haldol) 2 mg IVPUSH ONETIME ONE Stop: 04/25/18 17:33 Last Admin: 04/25/18 17:57 Dose: 2 mg Potassium Chloride/Sodium Chloride (Normal Saline With 20 Meq Kcl) 1,000 mls @ 75 mls/hr IV ASDIRECTED COUNT [facility]CLUDES [facility] Last Admin: 04/23/18 06:37 Dose: 75 mls/hr Ibuprofen (Motrin) 600 mg PO Q8H PRN PRN Reason: Pain Ibuprofen (Motrin) 400 mg PO Q8H PRN PRN Reason: pain moderate Ibuprofen (Motrin) 400 mg PO BID COUNT [facility]CLUD[facility] Last Admin: 04/18/18 08:37 Dose: 400 mg [facility]upro[facility] ([facility]rin) [facility] Last Admin: 04/27/18 12:32 Dose: Not Given Ibuprofen (Motrin) 400 mg PO ONETIME ONE Stop: 04/27/18 08:31 Last Admin: 04/27/18 08:33 Dose: 400 mg Lorazepam (Ativan) 1 mg IVPUSH ONETIME ONE Stop: 04/19/18 03:04 Last Admin: 04/19/18 03:13 Dose: 1 mg Lorazepam (Ativan) 1 mg IVPUSH ONETIME ONE Stop: 04/24/18 01:45 Last Admin: 04/24/18 02:10 Dose: 1 mg Methylprednisolone (Medrol) 4 mg PO TID COUNT [facility] Last Admin: 04/24/18 10:23 Dose: Not Given Morphine Sulfate (Morphine) 1 mg IVPUSH Q2H PRN PRN Reason: Pain (severe 7-10) Last Admin: 04/22/18 01:05 Dose: 1 mg Non-Formulary Medication (Apixaban [Eliquis]) 5 mg PO BID COUNT INCLUDES [facility] Non-Formulary Medication (Potassium [Potassium]) 250 mg PO BID COUNT [facility]CLUDES [facility] Oxycodone HCl (Oxycodone) 5 mg PO Q4H PRN PRN Reason: Pain (severe) Last Admin: 04/23/18 02:44 Dose: 5 mg PtomEliquis 5 Mg (Tab) 0 each PO BID COUNT [facility]CLUDES [facility] Last Admin: 04/22/18 08:21 Dose: 5 each PtomK-Phos 500 (Mg Tablet) 0 each PO BID COUNT [facility]CLUDES [facility] Last Admin: 04/27/18 08:19 Dose: Not Given Potassium Chloride (Klor-Con 10) 20 meq PO ONETIME ONE Stop: 04/21/18 13:33 Last Admin: 04/21/18 14:22 Dose: 20 meq Zolpidem Tartrate (Ambien) 5 mg PO BEDTIME PRN PRN Reason: Sleep Last Admin: 04/23/18 23:29 Dose: 5 mg - Exam General: Alert HEENT: Pupils Equal Neck: Supple Lungs: Clear to Auscultation Cardiovascular: Regular Rate, Regular Rhythm GI/Abdominal Exam: Normal Bowel Sounds - Problem List Review Problem List Initiated/Reviewed/Updated: Yes - My Orders Last 24 Hours: My Active Orders 04/27/18 11:15 Lidocaine 5% [Lidoderm 5%] 700 mg TOP DAILY 04/27/18 18:07 Peripheral IV Discontinue [OM.PC] Routine 04/27/18 21:00 Remove Patch 1 ea TRDERM Q24H - Plan Plan:: acute on chronic back pain Has a history of chronic T12 compression fracture, spinal stenosis Has been on Neurontin in the past CT of the lumbar spine showed chronic and degenerative changes Continue pain management Urinary tract infection Has had one week of IV antibiotics, completed treatment for UTI Atrial fibrillation Apixaban stopped because of hematuria Also hx of falls and dementia make the risks of anticoagulation much worse. Hypertension Continue BP medications History of atrial fibrillation Rate control with metoprolol Stopped Anticoagulation with apixaban (see above) Acute encephalopathy due to acute delirium due to history of dementia and hospital stay Try to minimize the narcotics, sedatives zyprexa as needed Haldol as needed Urinary retention, Hematuria; improved. 2/2 pulled urinary catheter, traumatic hematuria. Continue straight cath for now May need Continuous bladder irrigation if clots continue Continue flomax and proscar DVT ppx SCDs No AC given hematuria Awaiting transfer to senior care tomorrow
[2018-04-28] MEDS: Docusate Sodium 100 MG Cap PO PRN (12:18)
[2018-04-28] MEDS: Acetaminophen 325 MG Tab PO SCH ×2 (12:18→21:02)
[2018-04-28] MEDS: Bisacodyl 10 MG Supp RECTAL PRN (16:26)
[2018-04-28] MEDS: QUEtiapine 25 MG Tab PO SCH (21:03)
[2018-04-28] MEDS: atorvaSTATin 10 MG Tab PO SCH (21:03)
[2018-04-28] MEDS: Remove Patch*LIDODERM TRDERM SCH (21:09)
[2018-04-28] MEDS: OLANZapine 5 MG Tab PO PRN (22:36)
[2018-04-29] MEDS: OLANZapine 5 MG Tab PO PRN (05:04)
[2018-04-29] MEDS: Acetaminophen 325 MG Tab PO PRN (05:04)
[2018-04-29] MEDS: Lidocaine 5% 700 MG Patch TOP SCH ×2 (08:26→08:27)
[2018-04-29] MEDS: Ibuprofen 200 MG Tab PO SCH (08:27)
[2018-04-29] MEDS: Doxazosin 2 MG Tab PO SCH (08:29)
[2018-04-29] MEDS: Metoprolol Succinate 50 MG Tab.ER PO SCH (08:29)
[2018-04-29] MEDS: Finasteride 5 MG Tab PO SCH (08:29)
[2018-04-29] MEDS: Iron Polysaccharides Complex 150 MG Cap PO SCH (08:30)
[2018-04-29] MEDS: Tamsulosin 0.4 MG Cap.ER PO SCH (08:30)
--- NOTE | 2018-04-29 10:09 | PCM.DCSUM1 ---
Discharge Summary - Hospital Course Free Text/Narrative:: 87-year-old male with a history of dementia who previously lived in an assisted living facility sustained a fall has had ambulatory difficulties. Since admission, has had several episodes of delirium, managed with Zyprexa and Seroquel. He also has acute urinary retention likely from long-standing BPH. He is getting straight catheterization. The plan today is to discharge to [facility]. - Discharge Data Discharge Date: 04/29/18 Discharge Disposition: DC/Tfer to SNF 03 Condition: Good - Discharge Diagnosis/Problem(s) (1) Urinary obstruction SNOMED Code(s): 5337293 ICD Code: N13.9 - OBSTRUCTIVE AND REFLUX UROPATHY, UNSPECIFIED Status: Acute Current Visit: Yes (2) Acute encephalopathy SNOMED Code(s): 48094778, 080972030 ICD Code: G93.40 - ENCEPHALOPATHY, UNSPECIFIED Status: Acute Current Visit: Yes (3) Low back pain SNOMED Code(s): 621656066 ICD Code: M54.5 - LOW BACK PAIN Status: Acute Current Visit: Yes Qualifiers: Chronicity: acute Back pain laterality: bilateral Sciatica presence: without sciatica Qualified Code(s): M54.5 - Low back pain (4) Hip pain SNOMED Code(s): 10142930 ICD Code: M25.559 - PAIN IN UNSPECIFIED HIP Status: Acute Current Visit: No - Patient Summary/Data Consults: Consultations 04/17/18 14:28 OT Evaluation and Treatment [CONS] Routine PT Evaluation and Treatment [CONS] Routine - Patient Instructions Diet: Regular Diet as Tolerated Activity: As Tolerated, Full Weight Bearing - Discharge Plan Prescriptions/Med Rec: Acetaminophen [Tylenol] 650 mg PO BID@1300,2100 30 Days tablet Lidocaine 5% [Lidoderm 5%] 700 mg TOP DAILY #30 patch Menthol/Methyl Salicylate [Icy Hot] 1 applic TOP TID #1 tube OLANZapine [ZyPREXA] 5 mg PO Q6H PRN #30 tablet PRN Reason: agitation, restlessness QUEtiapine [SEROquel] 25 mg PO BEDTIME #30 tablet Tamsulosin [Flomax] 0.4 mg PO PCBREAKFAST #30 cap.er Home Medications: Home Meds Antiox#10/Om3/DHA/EPA/Lut/Zeax [I-Caps with Lutein-[place] 3 SFG] 1 cap PO DAILY 05/19/14 [History] Doxazosin Mesylate 4 mg PO DAILY 05/19/14 [History] Magnesium 250 mg PO DAILY 05/19/14 [History] Metoprolol Succinate [Toprol XL 50mg] 100 mg PO DAILY 05/19/14 [History] Acetaminophen 650 mg PO Q6H PRN 10/11/14 [History] Finasteride [Proscar] 5 mg PO DAILY 10/11/14 [History] Gabapentin [Neurontin] 300 mg PO DAILY 04/17/18 [History] Ibuprofen [Motrin] 600 mg PO Q8H PRN 04/17/18 [History] atorvaSTATin [Lipitor] 10 mg PO BEDTIME 04/17/18 [History] Acetaminophen [Tylenol] 650 mg PO BID@1300,2100 30 Days tablet 04/29/18 [Rx] Lidocaine 5% [Lidoderm 5%] 700 mg TOP DAILY #30 patch 04/29/18 [Rx] Menthol/Methyl Salicylate [Icy Hot] 1 applic TOP TID #1 tube 04/29/18 [Rx] OLANZapine [ZyPREXA] 5 mg PO Q6H PRN #30 tablet 04/29/18 [Rx] QUEtiapine [SEROquel] 25 mg PO BEDTIME #30 tablet 04/29/18 [Rx] Tamsulosin [Flomax] 0.4 mg PO PCBREAKFAST #30 cap.er 04/29/18 [Rx] Referrals: Reese White MD [Primary Care Provider] - - General Info Date of Service: 04/29/18 Admission Dx/Problem (Free Text: Admission Diagnosis/Problem Admission Diagnosis/Problem Back pain, dementia Subjective Update: I saw and examined the patient today. Still has back pain, right hip pain. I have ordered topical pain reliever in addition to current pain regimen [facility] - Review of Systems General: Reports: Other (Unable to obtain an accurate ROS due to dementia.) - Patient Data Vitals - Most Recent: Last Vital Signs Temp 36.6 C 04/29/18 07:31 Pulse 74 04/29/18 08:29 Resp 18 04/29/18 07:31 BP 156/61 H 04/29/18 08:29 Pulse Ox 99 04/29/18 07:31 Weight - Most Recent: 74.888 kg I&O - Last 24 hours: Intake & Output 04/28/18 04/29/18 04/29/18 22:59 06:59 14:59 Intake Total 390 100 200 Output Total 250 250 Balance 140 -150 200 Med Orders - Current: Current Medications Acetaminophen (Tylenol) 650 mg PO Q6H PRN PRN Reason: Pain/Fever Last Admin: 04/29/18 05:04 Dose: 650 mg Acetaminophen (Tylenol) 650 mg PO BID@1300,2100 [facility] Last Admin: 04/28/18 21:02 Dose: 650 mg Atorvastatin Calcium (Lipitor) 10 mg PO BEDTIME [facility] Last Admin: 04/28/18 21:03 Dose: 10 mg Bisacodyl (Dulcolax) 10 mg RECTAL DAILY PRN PRN Reason: constipation Last Admin: 04/28/18 16:26 Dose: 10 mg Docusate Sodium (Colace) 100 mg PO BID PRN PRN Reason: Constipation Last Admin: 04/28/18 12:18 Dose: 100 mg Doxazosin Mesylate (Cardura) 4 mg PO DAILY [facility] Last Admin: 04/29/18 08:29 Dose: 4 mg Finasteride (Proscar) 5 mg PO DAILY [facility] Last Admin: 04/29/18 08:29 Dose: 5 mg Ibuprofen (Motrin) 400 mg PO Q8H PRN PRN Reason: pain moderate Last Admin: 04/28/18 02:14 Dose: 400 mg Ibuprofen (Motrin) 400 mg PO BIDMEALS [facility] Last Admin: 04/29/18 08:27 Dose: 400 mg Lidocaine (Lidoderm 5%) 700 mg TOP DAILY [facility] Last Admin: 04/29/18 08:26 Dose: 700 mg Lidocaine (Lidoderm 5%) 700 mg TOP DAILY [facility] Last Admin: 04/29/18 08:27 Dose: 700 mg Magnesium Oxide (Magnesium Oxide) 250 mg PO DAILY [facility] Last Admin: 04/29/18 08:30 Dose: 250 mg Methyl Salicylate (Icy Hot Cream) 0 gm TOP TID [facility] Metoprolol Succinate (Toprol Xl) 100 mg PO DAILY [facility] Last Admin: 04/29/18 08:29 Dose: 100 mg Miscellaneous Information (Remove Patch) 1 ea TRDERM BEDTIME [facility] Last Admin: 04/28/18 21:09 Dose: Not Given Miscellaneous Information (Remove Patch) 1 ea TRDERM Q24H [facility] Last Admin: 04/28/18 21:09 Dose: Not Given Olanzapine (Zyprexa) 5 mg PO Q6H PRN PRN Reason: agitation, restlessness Last Admin: 04/29/18 05:04 Dose: 5 mg Olanzapine (Zyprexa) 5 mg IM Q6H PRN PRN Reason: agitation, reslessness Last Admin: 04/28/18 04:16 Dose: 5 mg Ondansetron HCl (Zofran Odt) 4 mg PO Q6H PRN PRN Reason: nausea, able to take PO Polysaccharide Iron Complex (Ferrex 150) 150 mg PO DAILY [facility] Last Admin: 04/29/18 08:30 Dose: 150 mg Quetiapine Fumarate (Seroquel) 25 mg PO BEDTIME [facility] Last Admin: 04/28/18 21:03 Dose: 25 mg Tamsulosin HCl (Flomax) 0.4 mg PO PCBREAKFAST [facility] Last Admin: 04/29/18 08:30 Dose: 0.4 mg Discontinued Medications Acetaminophen (Tylenol) 650 mg PO BID [facility] Last Admin: 04/18/18 08:40 Dose: 650 mg Acetaminophen (Tylenol) 650 mg PO 1300,2100 [facility] Last Admin: 04/23/18 22:42 Dose: 650 mg Ceftriaxone Sodium (Rocephin) 1 gm IVPUSH ONETIME ONE Stop: 04/17/18 12:23 Last Admin: 04/17/18 13:19 Dose: 1 gm Ceftriaxone Sodium (Rocephin) 1 gm IVPUSH Q24H [facility] Last Admin: 04/23/18 12:48 Dose: 1 gm Finasteride (Proscar) 5 mg PO DAILY [facility] Gabapentin (Neurontin) 200 mg PO BID [facility] Last Admin: 04/21/18 08:20 Dose: 200 mg Haloperidol Lactate (Haldol) 2 mg IVPUSH ONETIME ONE Stop: 04/25/18 17:33 Last Admin: 04/25/18 17:57 Dose: 2 mg Potassium Chloride/Sodium Chloride (Normal Saline With 20 Meq Kcl) 1,000 mls @ 75 mls/hr IV ASDIRECTED [facility] Last Admin: 04/23/18 06:37 Dose: 75 mls/hr Ibuprofen (Motrin) 600 mg PO Q8H PRN PRN Reason: Pain Ibuprofen (Motrin) 400 mg PO Q8H PRN PRN Reason: pain moderate Ibuprofen (Motrin) 400 mg PO BID [facility] Last Admin: 04/18/18 08:37 Dose: 400 mg [facility] Last Admin: 04/27/18 12:32 Dose: Not Given Ibuprofen (Motrin) 400 mg PO ONETIME ONE Stop: 04/27/18 08:31 Last Admin: 04/27/18 08:33 Dose: 400 mg Lorazepam (Ativan) 1 mg IVPUSH ONETIME ONE Stop: 04/19/18 03:04 Last Admin: 04/19/18 03:13 Dose: 1 mg Lorazepam (Ativan) 1 mg IVPUSH ONETIME ONE Stop: 04/24/18 01:45 Last Admin: 04/24/18 02:10 Dose: 1 mg Methylprednisolone (Medrol) 4 mg PO TID [facility] Last Admin: 04/24/18 10:23 Dose: Not Given Morphine Sulfate (Morphine) 1 mg IVPUSH Q2H PRN PRN Reason: Pain (severe 7-10) Last Admin: 04/22/18 01:05 Dose: 1 mg Non-Formulary Medication (Apixaban [Eliquis]) 5 mg PO BID [facility] Non-Formulary Medication (Potassium [Potassium]) 250 mg PO BID [facility] Oxycodone HCl (Oxycodone) 5 mg PO Q4H PRN PRN Reason: Pain (severe) Last Admin: 04/23/18 02:44 Dose: 5 mg PtomEliquis 5 Mg (Tab) 0 each PO BID [facility] Last Admin: 04/22/18 08:21 Dose: 5 each PtomK-Phos 500 (Mg Tablet) 0 each PO BID [facility] Last Admin: 04/27/18 08:19 Dose: Not Given Potassium Chloride (Klor-Con 10) 20 meq PO ONETIME ONE Stop: 04/21/18 13:33 Last Admin: 04/21/18 14:22 Dose: 20 meq Sodium Chloride (Saline Flush) 10 ml FLUSH ASDIRECTED PRN PRN Reason: Keep Vein Open Last Admin: 04/25/18 17:58 Dose: 10 ml Zolpidem Tartrate (Ambien) 5 mg PO BEDTIME PRN PRN Reason: Sleep Last Admin: 04/23/18 23:29 Dose: 5 mg - Exam General: Reports: Alert HEENT: Reports: Pupils Equal Neck: Reports: Supple Lungs: Reports: Clear to Auscultation Cardiovascular: Reports: Regular Rate, Regular Rhythm GI/Abdominal Exam: Normal Bowel Sounds
[2018-04-29 10:56] VITALS: BP 119/48
[2018-04-29] MEDS: Menthol/Methyl Salicylate 85 GM Tube TOP SCH ×2 (11:00→13:12)
[2018-04-29] MEDS: Acetaminophen 325 MG Tab PO SCH (12:51)
== END 2018-04-29 13:25 | DRG 551 ==
LOC: DL.ED 10:30 → UNDOADMIN 13:04 → DL.MS 13:04
PROVIDERS: ADMIT Internal Medicine; ATTEND Internal Medicine
DX: M54.5 Low back pain (principal); N39.0 Urinary tract infection, site not specified; S39.92XA Unspecified injury of lower back, initial encounter; G93.49 Other encephalopathy; N40.1 Benign prostatic hyperplasia with lower urinary tract symptoms; N13.9 Obstructive and reflux uropathy, unspecified; I48.91 Unspecified atrial fibrillation; M54.9 Dorsalgia, unspecified; E78.00 Pure hypercholesterolemia, unspecified; F03.90 Unspecified dementia, unspecified severity, without behavioral disturbance, psychotic disturbance, mood disturbance, and anxiety; R33.8 Other retention of urine; I10 Essential (primary) hypertension; G62.9 Polyneuropathy, unspecified; R31.9 Hematuria, unspecified; M48.54XD Collapsed vertebra, not elsewhere classified, thoracic region, subsequent encounter for fracture with routine healing; M48.04 Spinal stenosis, thoracic region; M47.9 Spondylosis, unspecified; W18.30XA Fall on same level, unspecified, initial encounter; Y92.002 Bathroom of unspecified non-institutional (private) residence as the place of occurrence of the external cause; M25.551 Pain in right hip; H91.90 Unspecified hearing loss, unspecified ear; Z79.899 Other long term (current) drug therapy; Z95.0 Presence of cardiac pacemaker; Z96.641 Presence of right artificial hip joint; Z91.81 History of falling
CPT/HCPCS: 36415; 72131; 80053; 81001; 85025; 87086; 87088; 87186; 96374; 99284; 99285; J0696; 36600; 51701; 51702; 51703; 51798; 80048; 82803; 97162-GP; 97165-GO; 97530-GO; 97530-GP; A9270-GY; J1630; J2060; J2270; J3480; J7050; S0166

== ENCOUNTER 2018-05-05 13:05 | Emergency (ER) | payer MEDICARE, BC ==
[2018-05-05 13:12] VITALS: BP 157/94
--- NOTE | 2018-05-05 13:26 | EDM.PDOC ---
ED HPI GENERAL MEDICAL PROBLEM - General Chief Complaint: Lower Extremity Injury/Pain Stated Complaint: IN BY AMBULANCE Time Seen by Provider: 05/05/18 13:26 Source of Information: Reports: Patient, EMS, Family (daughter), Snf Records, Old Records, RN, RN Notes Reviewed History Limitations: Reports: Altered Mental Status (chronic severe dementia) - History of Present Illness INITIAL COMMENTS - FREE TEXT/NARRATIVE: Sent from memory care unit by ambulance with report of severe low back pain radiating down right leg. On arrival to ER pt appears comfortable and denies any current pain. Pt is unable to provide any further history. Pt's daughter states pt has severe pain when sitting, and is better when laying down. Pt was given oxycodone by [facility] staff prior to sending to the ER. Onset: Unknown/Unsure Duration: Chronic Location: Reports: Back, Lower Extremity, Right Quality: Reports: Same as Previous Episode Severity: Severe Improves with: Reports: Other (supine position) Worsens with: Reports: Other (sitting), Movement Treatments [employer]: Reports: Other Medication(s) Other Treatments [employer]: Percocet - Related Data Allergies Allergy/AdvReac Type Severity Reaction Status Date / Time No Known Allergies Allergy Verified 04/17/18 14:12 Home Meds: Home Meds Antiox#10/Om3/DHA/EPA/Lut/Zeax [I-Caps with Lutein-[place] 3 SFG] 1 cap PO DAILY 05/19/14 [History] Doxazosin Mesylate 4 mg PO DAILY 05/19/14 [History] Magnesium 250 mg PO DAILY 05/19/14 [History] Metoprolol Succinate [Toprol XL 50mg] 100 mg PO DAILY 05/19/14 [History] Acetaminophen 650 mg PO Q6H PRN 10/11/14 [History] Finasteride [Proscar] 5 mg PO DAILY 10/11/14 [History] Gabapentin [Neurontin] 300 mg PO DAILY 04/17/18 [History] Ibuprofen [Motrin] 600 mg PO Q8H PRN 04/17/18 [History] atorvaSTATin [Lipitor] 10 mg PO BEDTIME 04/17/18 [History] Acetaminophen [Tylenol] 650 mg PO BID@1300,2100 30 Days tablet 04/29/18 [Rx] Lidocaine 5% [Lidoderm 5%] 700 mg TOP DAILY #30 patch 04/29/18 [Rx] Menthol/Methyl Salicylate [Icy Hot] 1 applic TOP TID #1 tube 04/29/18 [Rx] OLANZapine [ZyPREXA] 5 mg PO Q6H PRN #30 tablet 04/29/18 [Rx] QUEtiapine [SEROquel] 25 mg PO BEDTIME #30 tablet 04/29/18 [Rx] Tamsulosin [Flomax] 0.4 mg PO PCBREAKFAST #30 cap.er 04/29/18 [Rx] Apixaban [Eliquis] 2.5 mg PO BID 05/05/18 [History] Sennosides [Senokot] 1 tab PO BID 05/05/18 [History] oxyCODONE HCl/Acetaminophen [Percocet 5-325 mg Tablet] 5 - 325 mg PO Q4HR PRN [History] Past Medical History HEENT History: Reports: Hard of Hearing Cardiovascular History: Reports: Afib, High Cholesterol, Pacemaker Respiratory History: Reports: None Gastrointestinal History: Reports: Other (See Below) Other Gastrointestinal History: inguinal hernia Genitourinary History: Reports: BPH Musculoskeletal History: Reports: Back Pain, Chronic, Fracture (T12 compression) , Osteoarthritis, Other (See Below) (spinal stenosis) 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, Peripheral Psychiatric History: Reports: Dementia, Hallucinations Endocrine/Metabolic History: Reports: None Hematologic History: Reports: None Immunologic History: Reports: None Oncologic (Cancer) History: Reports: None Dermatologic History: Reports: None - Infectious Disease History Infectious Disease History: Reports: None - Past Surgical History HEENT Surgical History: Reports: Cataract Surgery Cardiovascular Surgical History: Reports: Other (See Below) Other Cardiovascular Surgeries/Procedures: pacemaker Respiratory Surgical History: Reports: None GI Surgical History: Reports: None Male Surgical History: Reports: None Neurological Surgical History: Reports: None Musculoskeletal Surgical History: Reports: Hip Replacement Other Musculoskeletal Surgeries/Procedures:: right hip partial, 1989 Social & Family History - Family History Family Medical History: Noncontributory - Caffeine Use Caffeine Use: Reports: Soda - Living Situation & Occupation Living situation: Reports: Extended Care Facility Occupation: Retired Review of Systems - Review of Systems Review Of Systems: Unable To Obtain ED EXAM, GENERAL - Physical Exam Exam: See Below Exam Limited By: Physical Impairment General Appearance: Alert, No Apparent Distress, Other (frail, elderly, chronically appearing male) Throat/Mouth: Normal Inspection, Normal Voice, No Airway Compromise Head: Atraumatic, Normocephalic Neck: Normal Inspection Respiratory/Chest: No Respiratory Distress, Lungs Clear, No Accessory Muscle Use , Decreased Breath Sounds Cardiovascular: Regular Rate, Rhythm, No Edema GI/Abdominal: Normal Bowel Sounds, Soft, Non-Tender, No Distention. No: Guarding, Rigid, Rebound (Male) Exam: Deferred Rectal (Males) Exam: Deferred Back Exam: Decreased Range of Motion Extremities: Normal Inspection, Non-Tender, No Pedal Edema, Normal Capillary Refill, Limited Range of Motion Neurological: Alert, Confused, Disoriented Psychiatric: Normal Mood Skin Exam: Warm, Dry, Intact, Normal Color Course - Vital Signs Last Recorded V/S: Last Vital Signs Temp 37.0 C 05/05/18 13:11 Pulse 96 05/05/18 13:11 Resp 18 05/05/18 13:11 BP 157/94 H 05/05/18 13:11 Pulse Ox 92 L 05/05/18 13:11 - Orders/Labs/Meds Meds: Medications Discontinued Medications Generic Name Dose Route Start Last Admin Trade Name Blairq PRN Reason Stop Dose Admin Dexamethasone 10 mg 05/05/18 13:58 Dexamethasone IM 05/05/18 13:59 ONETIME ONE - Re-Assessments/Exams Free Text/Narrative Re-Assessment/Exam: 05/05/18 14:20 I explained to the pt's daughter that the pt was comfortable and pain free on arrival to the ER, and had just been medicated for pain before being sent to the ER by the [facility] staff. I do not recommend changing his medication regime at this time, and will defer medication management to pt's primary doctor. I see no signs of new injury, or evidence of infection. I see no indications for any lab or diagnostic work up at this time. Departure - Departure Time of Disposition: 14:03 (D/C back to memory care unit) Disposition: Home, Self-Care 01 Condition: Poor Clinical Impression: Lumbar radiculopathy, History of spinal stenosis, History of vertebral compression fracture, Hallucinations due to late onset dementia Chronic low back pain Qualifiers: Back pain laterality: unspecified Sciatica presence: with sciatica Sciatica laterality: sciatica laterality unspecified Qualified Code(s): M54.40 - Lumbago with sciatica, unspecified side - Discharge Information Instructions: Chronic Pain, Adult, Lumbosacral Radiculopathy Forms: ED Department Discharge Additional Instructions: Decadron (Dexamethasone) 4mg: One tablet by mouth every 12 hours (begin 05/06/18) . May crush & give with applesauce. Consult occupational therapy for assist. with positioning or chair to minimize pain while sitting. Continue all other medication and care orders. Follow up with Dr. White (or provider covering his half-way patients) later this week for recheck.
[2018-05-05] MEDS ORDERED: Dexamethasone 4 MG/ML SDV IM ONE (13:58)
== END 2018-05-05 15:01 | disposition home or self-care (01) ==
LOC: DL.ED 13:05
DX: M54.16 Radiculopathy, lumbar region (principal); M54.40 Lumbago with sciatica, unspecified side; G89.29 Other chronic pain; F03.90 Unspecified dementia, unspecified severity, without behavioral disturbance, psychotic disturbance, mood disturbance, and anxiety; E78.00 Pure hypercholesterolemia, unspecified; Z79.899 Other long term (current) drug therapy; Z87.39 Personal history of other diseases of the musculoskeletal system and connective tissue; Z87.81 Personal history of (healed) traumatic fracture
CPT/HCPCS: 96372; 99283; 99284; J1100